=== PATIENT | male | born 1985 | race Caucasian/White ===

== ENCOUNTER 2017-08-30 16:18 | Emergency (ER) | payer MEDICAID, OTHER ==
[2017-08-30] MEDS ORDERED: NS 0.9% 1000 ML* 1,000 ML IV ONE (17:48)
[2017-08-30] MEDS ORDERED: Morphine VIAL* 10 MG/ML 1 ML VIAL IV ONE ×2 (17:48→20:26)
[2017-08-30] MEDS ORDERED: Morphine VIAL* 4 MG/ML VIAL (1 ml vial) IV ONE (18:03)
[2017-08-30 18:09] LABS: ABS Basophils 0.1 10^3/ul (0-0.2); ABS Eosinophils 0.4 10^3/ul (0-0.6); ABS Lymphocytes 2.1 10^3/ul (1.0-4.8); ABS Monocytes 1.2 10^3/ul (0-0.8); ABS Neutrophils 7.6 10^3/ul (1.5-7.7); ABS Nucleated RBC 0 10^3/ul; Eosinophil % 3.8 % (0-6); Hematocrit 42 % (42-52); Hemoglobin 14.2 g/dl (14.0-18.0); Mean Corpuscular HGB Conc 34 g/dl (31-36); Mean Corpuscular Hemoglobin 31 pg (27-31); Mean Corpuscular Volume 93 fL (80-94); Mean Platelet Volume 10.1 um3 (7.4-10.4); Nucleated Red Blood Cells % 0; Platelet Count 173 10^3/ul (150-450); Red Blood Count 4.57 10^6/ul (4.0-5.4); Red Cell Distribution Width 14 % (10.5-15); White Blood Count 11.4 10^3/ul (3.5-10.8)
[2017-08-30 18:25] LABS: EGFR Non-African American 111.1 (>60)
--- NOTE | 2017-08-30 18:46 | RAD ---
Indication: LEFT foot infection/ulcer. Comparison: May 20, 2012 Technique: AP, lateral, and oblique views LEFT foot. Report: Post amputation of the fifth toe at level of the proximal metaphysis of the metatarsal. Internal fixation hardware at the first metatarsal without evidence for component failure or loosening. Chronic appearing fracture at the level of the proximal metaphysis of the fourth metatarsal with nonunion and probable pseudoarthrosis. No acute fracture evident. Soft tissue swelling most prominent over the lateral aspect superficial to the base of the residual fifth metatarsal and extending distally superficial to the chronic fracture of the fourth metatarsal. No subcutaneous emphysema or conspicuous foreign body evident. No periosteal reaction or focal osteolysis evident. Nonspecific osteosclerosis at the residual base of the fifth metatarsal and at the fourth metatarsal flanking the chronic fracture site. IMPRESSION: Extensive lateral soft tissue swelling. Chronic osteomyelitis at the residual base of the fifth metatarsal and fourth metatarsal flanking the chronic nonunion fracture site is not excluded. Correlate with clinical assessment specifically for the site of the ulcer and consider MRI or in setting of contraindication to MRI 3 phase bone scan for further assessment.
[2017-08-30] MEDS ORDERED: Vancomycin(*) 1,000 MG in NS 0.9% 250 ML* 250 ML IVPB ONE (19:24)
--- NOTE | 2017-08-30 20:37 | ED ---
Skin Complaint - HPI Summary HPI Summary: Patient with history of Charcot's foot and fifth digit amputation from left foot complains of redness, purulent drainage, pain from ulcer at lateral left foot along prior surgical incision site starting yesterday. Associated symptoms , subjective fever and chills. Amputation performed in 2015. Denies fever, N/V, loss of sensation or function. - History of Current Complaint Chief Complaint: EDExtremityLower Time Seen by Provider: 08/30/17 17:36 Stated Complaint: LT FOOT INFECTION FROM UC Hx Obtained From: Patient Onset Severity: Mild Current Severity: Moderate Pain Intensity: 0 Pain Scale Used: 0-10 Numeric - Allergy/Home Medications Allergies/Adverse Reactions: Allergies Allergy/AdvReac Type Severity Reaction Status Date / Time divalproex sodium Allergy Vomiting Verified 08/30/17 16:28 [From Depakote] PMH/Surg Hx/FS Hx/Imm Hx Endocrine/Hematology History: Denies: Hx Diabetes, Hx Thyroid Disease Cardiovascular History: Reports: Hx Hypertension - ON CLONIDINE Denies: Hx Pacemaker/ICD, Other Cardiovascular Problems/Disorders Respiratory History: Reports: Hx Asthma - A CHILD Denies: Other Respiratory Problems/Disorders History: Denies: Hx Dialysis, Hx Renal Disease, Other Problems/Disorders Musculoskeletal History: Reports: Other Musculoskeletal History - "Muscular dystrophy" Sensory History: Denies: Hx Contacts or Glasses, Hx Hearing Aid Opthamlomology History: Denies: Hx Contacts or Glasses Neurological History: Denies: Hx Seizures Comment Only: Other Neuro Impairments/Disorders - MUSCULAR DYSTROPHY Psychiatric History: Reports: Hx Depression - A TEEN, Hx Substance Abuse - LONG AGO, USED POT Denies: Hx Panic Disorder - Surgical History Surgery Procedure, Year, and Place: 05/30/12 LT FOOT RESECTION OF FIFTH METATARSAL, [facility]. 2010 LEFT FOOT SURGERY TO REMOVED INFECTION, [facility]. ADENOIDECTOMY, A CHILD Hx Anesthesia Reactions: No Infectious Disease History: No Infectious Disease History: Denies: Traveled Outside the [place] in Last 30 Days - Social History Alcohol Use: Occasionally Substance Use Type: Reports: None Smoking Status (MU): Heavy Every Day Tobacco Smoker Review of Systems Positive: Chills Eyes: Negative ENT: Negative Cardiovascular: Negative Respiratory: Negative Gastrointestinal: Negative Genitourinary: Negative Musculoskeletal: Negative Skin: Other Neurological: Negative Positive: Anxious All Other Systems Reviewed And Are Negative: Yes Physical Exam - Summary Physical Exam Summary: Wound along prior amputation site on the lateral left foot, with erythema and warmth to the dorsal surface of left foot. Wound appears dry, no evidence of purulent discharge. No loss of sensation. PMS intact distally. Left Ankle has no erythema or warmth, full range of motion of flexion and extension without pain. Triage Information Reviewed: Yes Vital Signs On Initial Exam: Initial Vitals Temp Pulse Resp BP Pulse Ox 97.8 F 91 20 142/104 99 08/30/17 16:28 08/30/17 16:28 08/30/17 16:28 08/30/17 16:28 08/30/17 16:28 Vital Signs Reviewed: Yes Appearance: Positive: Well-Appearing Skin: Positive: Warm Head/Face: Positive: Normal Head/Face Inspection Eyes: Positive: Normal Neck: Positive: Supple Respiratory/Lung Sounds: Positive: Clear to Auscultation Cardiovascular: Positive: Normal Abdomen Description: Positive: Nontender Musculoskeletal: Positive: Normal Neurological: Positive: Normal Psychiatric: Positive: Normal AVPU Assessment: Alert - Rios Coma Scale Best Eye Response: 4 - Spontaneous Best Motor Response: 6 - Obeys Commands Best Verbal Response: 5 - Oriented Coma Scale Total: 15 Diagnostics - Vital Signs Vital Signs Temp Pulse Resp BP Pulse Ox 08/30/17 20:00 69 97 08/30/17 19:37 69 100 08/30/17 18:09 16 08/30/17 16:28 97.8 F 91 20 142/104 99 - Laboratory Lab Results: Lab Results 08/30/17 08/30/17 08/30/17 Range/Units 17:56 17:56 17:56 WBC 11.4 H (3.5-10.8) 10^3/ul RBC 4.57 (4.0-5.4) 10^6/ul Hgb 14.2 (14.0-18.0) g/dl Hct 42 (42-52) % MCV 93 (80-94) fL MCH 31 (27-31) pg MCHC 34 (31-36) g/dl RDW 14 (10.5-15) % Plt Count 173 (150-450) 10^3/ul MPV 10.1 (7.4-10.4) um3 Neut % (Auto) 66.8 (38-83) % Lymph % (Auto) 18.0 L (25-47) % Wythe % (Auto) 10.9 H (0-7) % Eos % (Auto) 3.8 (0-6) % Baso % (Auto) 0.5 (0-2) % Absolute Neuts (auto) 7.6 (1.5-7.7) 10^3/ul Absolute Lymphs (auto) 2.1 (1.0-4.8) 10^3/ul Absolute Monos (auto) 1.2 H (0-0.8) 10^3/ul Absolute Eos (auto) 0.4 (0-0.6) 10^3/ul Absolute Basos (auto) 0.1 (0-0.2) 10^3/ul Absolute Nucleated RBC 0 10^3/ul Nucleated RBC % 0 ESR Pending Sodium 140 (139-145) mmol/L Potassium 4.3 (3.5-5.0) mmol/L Chloride 103 (101-111) mmol/L Carbon Dioxide 30 (22-32) mmol/L Anion Gap 7 (2-11) mmol/L BUN 10 (6-24) mg/dL Creatinine 0.81 (0.67-1.17) mg/dL Est GFR ( Amer) 142.9 (>60) Est GFR (Non-Af Amer) 111.1 (>60) BUN/Creatinine Ratio 12.3 (8-20) Glucose 121 H (70-100) mg/dL Lactic Acid 0.7 (0.5-2.0) mmol/L Calcium 8.9 (8.6-10.3) mg/dL Total Bilirubin 0.40 (0.2-1.0) mg/dL AST 20 (13-39) U/L ALT 13 (7-52) U/L Alkaline Phosphatase 65 (34-104) U/L C-Reactive Protein 68.26 H (< 5.00) mg/L Total Protein 7.3 (6.4-8.9) g/dL Albumin 4.1 (3.2-5.2) g/dL Globulin 3.2 (2-4) g/dL Albumin/Globulin Ratio 1.3 (1-3) Result Diagrams: 08/30/17 17:56 08/30/17 17:56 Lab Statement: Any lab studies that have been ordered have been reviewed, and results considered in the medical decision making process. - Radiology left foot Xray Interpretation: Positive (See Comments) - Acute on chronic osteomyelitis Radiology Interpretation Completed By: Radiologist Course/Dx - Course Course Of Treatment: Patient with history of Charcot's foot and fifth digit amputation from left foot complains of redness, purulent drainage, pain from ulcer at lateral left foot along prior surgical incision site starting yesterday. Amputation performed in 2015. Denies fever, N/V, loss of sensation or function. Afebrile, vital signs within normal limits. Mildly elevated white count and CRP. Lactic within normal limits. X-ray positive for either chronic or acute osteomyelitis. Discussed patient with Dr. Fishman who recommended admission for further workup, IV antibiotics and MRI despite pt not being septic. Patient refused admission despite long conversation about possible risks of leaving without a workup and treatment for osteomyelitis. Patient is aware of the risks including sepsis, life-threatening process due to sepsis, loss of left foot. Patient aware that myself and the physician providers recommended admission. Patient continues to refuse admission. Discussed refusal to be admitted with Dr. Fishman, who recommends putting patient on Augmentin by mouth and follow-up in the clinic tomorrow with either her or Dr. Tom. Patient states he understands and agrees with plan, and also will return for any possible concerning symptoms as he recognizes sepsis can be life-threatening. Patient also stated that he "just wants the foot cut off". - Diagnoses Provider Diagnoses: Cellulitis, Osteomyelitis Discharge - Sign-Out/Discharge Documenting (check all that apply): Discharge/Admit/Transfer - Discharge Plan Condition: Stable Disposition: HOME Prescriptions: Amoxicillin/Clavulanate TAB* [Augmentin TAB 875*] 875 mg PO BID #20 tab HYDROcodone/ACETAMIN 5-325 MG* [[place] 5-325 TAB*] 1 tab PO Q6H PRN 2 Days #8 tab MDD 4-6 tabs PRN Reason: Pain Patient Education Materials: Cellulitis (ED) Referrals: Elliot Lorenz MD [Primary Care Provider] - Santi Paul MD [Medical Doctor] - Additional Instructions: Follow-up with orthopedics Dr. Willis tomorrow. They will see you tomorrow in clinic. Return to ED for any worsening symptoms - Billing Disposition and Condition Condition: STABLE Disposition: HOME
[2017-08-30 22:02] VITALS: BP 133/72
== END 2017-08-30 22:00 | disposition home or self-care (01) ==
LOC: ED 16:18
DX: L03.116 Cellulitis of left lower limb (principal); M86.9 Osteomyelitis, unspecified; F17.200 Nicotine dependence, unspecified, uncomplicated; Z88.8 Allergy status to other drugs, medicaments and biological substances; Z89.432 Acquired absence of left foot
CPT/HCPCS: 36415; 80053; 83605; 85025; 85652; 86140; 87040; 96365; 96375; 96376; 99284; J2270; J3370

== ENCOUNTER 2017-09-09 07:30 | Inpatient (IN) | payer MEDICAID ==
[~2017-09-09 07:30] MED LIST: Buffered Lidocaine 0.9% SYRIN* 5 ML/SYR SYRINGE INTRADERM ONE
[2017-09-09] MEDS ORDERED: ceFAZolin 2 GM PREMIX (*) 2 GM/50 ML BAG IVPB ONE (09:42)
[2017-09-09] MEDS ORDERED: Midazolam* 1 MG/ML 5 ML VIAL (5 MG) ONE ×2 (11:02→13:52)
[2017-09-09] MEDS ORDERED: fentaNYL* 50 MCG/ML 2 ML VIAL (100 MCG VIAL) ONE (11:02)
[2017-09-09] MEDS ORDERED: Bupivacaine 0.5% SDV PF* 30ML VIAL ONE ×2 (11:28→11:33)
[2017-09-09] MEDS ORDERED: Famotidine IV* 10 MG/ML 2 ML (20 mg) ONE (12:12)
[2017-09-09] MEDS ORDERED: Propofol* 10 MG/ML 20 ML BTL IV PUSH ONE (12:12)
[2017-09-09] MEDS ORDERED: Dexamethasone IV* 4 MG/ML 1 ML (4 MG) ONE (12:12)
[2017-09-09] MEDS ORDERED: Ketorolac INJ* 30 MG/ML 1 ML VIAL ONE (12:12)
[2017-09-09] MEDS ORDERED: Dexmedetomidine* 200 MCG/2 ML 2 ML VIAL ONE (12:18)
--- NOTE | 2017-09-09 13:26 | CONS ---
DATE OF CONSULTATION: 09/09/2017. REQUESTING PHYSICIAN: Dr. Paul. CONSULTING SERVICE: Infectious Disease. REASON FOR CONSULTATION: Left foot infection. IMPRESSION: 1. Left lateral foot ulceration over bony prominence. MRI, September 01, shows a bone marrow replacement in the fifth metatarsal remnant. Taken together he has chronic osteomyelitis. He has cellulitis as well which is improving while on Augmentin, likely staph or strep, though gram negative and anaerobes are still a consideration. 2. Urtidli-[id number]-[id number]. RECOMMENDATIONS: Continue Augmentin 875 mg by mouth twice daily. Plan on a six week course while we are awaiting the bone and soft tissue specimen and cultures taken together when he is going to have incision and debridement of that area. I discussed with the patient the standard of care would be admission and await cultures and plan on IV antibiotics, which Dr. Paul has attempted to convince him of as well. He understands this, but is unwilling to come into the hospital. He understands this could lead to loss of limb and is unfazed by that. 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 He has had a week or so of left lateral foot ulceration with redness spreading up his foot. He has been on Augmentin for a few days with receding erythema. He has had fevers, chills, and sweats that persist. He did have blood cultures on the there were negative. He is tolerating Augmentin well. He had the MRI with results as above. He is in the preoperative area now awaiting incision and debridement with Dr. Paul. PAST MEDICAL HISTORY: [id number], status post resection of left fifth metatarsal head and first metatarsal fixation. ALLERGIES: DEPAKOTE, TYLENOL, TRAMADOL. FAMILY HISTORY: No recurrent infections. SOCIAL HISTORY: He has been incarcerated. He lives with a girlfriend in [place] now. Past injection drug use. REVIEW OF SYSTEMS: All negative except as noted above to a 14 point review of systems. PHYSICAL EXAM: General: He is awake, not in distress. Vital Signs: Temperature 36, heart rate 85, respiratory rate 16, blood pressure 150/70, oxygen saturation 96 percent on room air. Neurologic: He is oriented times three, follows all commands. HEENT: There is no conjunctival hemorrhage. Oropharynx without lesions. Neck: Supple without mass. Lymph nodes: There are no inguinal, axillary, or epitrochlear lymphadenopathy. Heart: Regular rate and rhythm without murmurs, rubs, or gallops. Lungs: Clear to auscultation bilaterally. Abdomen: Soft, nontender, nondistended, bowel sounds are present. Skin: There is no rash or splinter hemorrhages. Musculoskeletal : Left lateral foot: 2.5 cm ulceration with some slough surrounding erythema over the lateral aspect of the fifth metatarsal. There is no fluctuant or crepitus. LABORATORY DATA: From the , white blood cell count 7, hemoglobin 14, platelets 199, creatinine was 0.7, CRP 8. Please see impressions and recommendations as outlined above which I have discussed with Dr. Paul. Thank you for asking me to see Mr. Hutchinson in consultation. [id number]/CPS #: [id number] MTDD
[2017-09-09] MEDS ORDERED: PROCHLORPERAZINE INJ 5 MG/ML 2 ML VIAL IV PRN (13:29)
[2017-09-09] MEDS ORDERED: Nalbuphine* 20 MG/ML 1 ML VIAL IV PRN (13:29)
[2017-09-09] MEDS ORDERED: Levalbuterol 0.63MG/3ML NEB* UNIT OF USE INH PRN (13:29)
[2017-09-09] MEDS ORDERED: DiMENhydriNATE IV* 50 MG/ML VIAL IV PUSH PRN (13:29)
[2017-09-09] MEDS ORDERED: Ondansetron ODT TAB* 4 MG PO PRN (13:29)
[2017-09-09] MEDS ORDERED: diPHENhydraMINE IV* 50 MG/ML 1 ml VIAL (BENADRYL) IV PRN (13:29)
[2017-09-09] MEDS ORDERED: Naloxone* 0.4 MG/ML 1 ML VIAL IV PRN (13:29)
[2017-09-09] MEDS ORDERED: fentaNYL* 50 MCG/ML 2 ML VIAL (100 MCG VIAL) IV PRN (13:29)
[2017-09-09] MEDS ORDERED: HYDROmorphone INJ* 1 MG/ML CARPUJECT SYRINGE IV PRN (13:29)
--- NOTE | 2017-09-09 14:23 | OP ---
Operative Report - Blank - Operative Report Date of Operation: 09/09/17 Note: PATIENT: Kendrick Hutchinson III DATE OF : 1985 DATE OF SURGERY: 09/09/2017 SURGEON: Santi Paul MD MANAGER IT SECURITY: DAMIÁN Roman, whos assistance was necessary for positioning, retraction, help with instrumentation, and closure. ANESTHESIOLOGIST: Dr. Skinner PREOPERATIVE DIAGNOSIS: 1. 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 Left Achilles contracture POSTOPERATIVE DIAGNOSIS: 1. Left foot infection with osteomyelitis 2. Cavovarus foot deformity from Rovnxzg-Qbvza-Vfsoh 3. Left Achilles contracture OPERATION: 1. Left foot transtarsal (Chopart) amputation 2. Left tibialis anterior tendon transfer 3. Left lateralizing calcaneal osteotomy 4. Left percutaneous Achilles tenotomy ANESTHESIA: GETA IMPLANTS: Two 6.5mm Synthes cannulated screws TOURNIQUET TIME: Less than 2 hours with a well-padded thigh tourniquet at 250mmHg. SPECIMENS: Foot sent to pathology. Micro x2 ESTIMATED BLOOD LOSS: minimal COMPLICATIONS: none STATUS: Stable from the operating room to the recovery room and then home INDICATIONS FOR PROCEDURE: Kendrick has had a complicated history with his left foot. This has resulted in multiple ulcers and infections, and currently osteomyelitis. Both operative and non operative treatment alternatives were reviewed. Further, the nature and risks of surgery were reviewed in careful detail. Our discussions regarding the risks of surgery included, but were not limited to, infection, wound problems, nerve injury, neuroma, RSD, persistent symptoms, blood clot, persistent or worsening infection, phantom limb pain, failure of the surgery, nonunion, malunion, need for further amputation, need for further surgery, and even the remote chance of catastrophic complication, including loss of limb. DESCRIPTION OF PROCEDURE: The patient was seen in the preoperative holding unit and informed written consent was obtained. The appropriate extremity was marked. The patient was then brought to the operating room and carefully positioned on the operating room table. Anesthesia was induced. All bony prominences were padded with great care. A well-padded thigh tourniquet was placed. A chlorhexidine based pre- scrub was performed followed by a chloraprep prep and drape in standard sterile fashion. A surgical safety pause was then conducted in which we confirmed the appropriate patient, extremity, planned procedure, availability of equipment, indication and administration of prophylactic antibiotics, and DVT prophylaxis in the form of a compression boot on the non-surgical extremity. We began with Esmarch exsanguination of the limb, avoiding the involved foot, and inflated the tourniquet. We utilized a fish-mouth incision at the midfoot. I dissected down through the dorsal and lateral foot to define the tibialis anterior tendon. These were dissected out, incised at their distal insertion, and tagged for later transfer. I then identified the neurovascular bundles. The vessels were carefully tied off and the nerves were transected proximally in the soft tissue. Tendons (except the tibialis anterior) were transected. I then sharply dissected down to the transtarsal joints. The mid and forefoot were then amputated at the level of the transtarsal (Chopart) joints. Deep cultures were sent to microbiology. The foot was sent to pathology. The tibialis anterior tendon was then transferred to the neck of the talus. The tendon was sized and an appropriately sized diameter drill hole was made into the neck of the talus. The ankle was held in a neutral position and the tendon was passed transosseously through the drill hole and secured with #1 vicryl sutures. I then made an approximately 5 cm longitudinal incision at the lateral hindfoot. I used a previous incision from a prior surgery. I bluntly dissected down to the lateral calcaneus. A small oscillating saw was used to plan out the osteotomy. Fluoroscopy was used to confirm the location of the osteotomy. The osteotomy was made of the calcaneus. I used a Truong to release the medial soft tissues. I then translated the posterior aspect of the calcaneus approximately 1 cm lateral. Two guidewires were placed for 6.5 mm cannulated screws. Their position was confirmed on fluoroscopy. The guidewires were overdrilled and two partially-threaded 6.5 mm cannulated screws were placed. Final fluoroscopic images were obtained. I then turned my attention to the Achilles tendon to prevent a progressive equinus contracture. I performed a percutaneous tenotomy of the midsubstance of the Achilles tendon utilizing a 15-blade scalpel. The ankle was then dorsiflexed confirming that the Achilles had been fully transected. At this point, the tourniquet was deflated. Hemostasis was obtained. We irrigated copiously. All remain tissue appeared healthy and viable. We closed meticulously in layers utilizing #1 Vicryl for the deep layer, 3-0 Monocryl for the subdermal layer, and 3-0 nylon and jada for the skin. A sterile dressing was then applied followed by a splint with the ankle in neutral alignment. The patient was then awakened from anesthesia and transferred to the recovery room in stable condition. There were no complications. All needle and sponge counts were correct at the end of the case. ATTESTATION: I attest I was present and scrubbed and performed the critical portions of the procedure myself. POSTOPERATIVE PLAN: The patient will remain [id number] in the splint and will follow up will be in two weeks for a wound check. Antibiotic treatment will be guided by the infectious disease service.
[2017-09-09] MEDS ORDERED: oxyCODONE/Acetamin 5/325 MG* TAB ONE (15:35)
[2017-09-09] MEDS ORDERED: oxyCODONE TAB* 5 MG TAB ONE (15:36)
[2017-09-09 15:54] VITALS: BP 122/60
--- NOTE | 2017-09-13 10:03 | RAD ---
CPT II Codes: G9500 INDICATION: Calcaneal slide osteotomy TECHNIQUE: Intraoperative fluoroscopy was provided during left heel surgery. FINDINGS: 2 spot films depict intramedullary screw fixation of the calcaneal tubercle after apparent surgical osteotomy. Fluoroscopy time: 22.3 seconds IMPRESSION: As above.
== END 2017-09-09 15:57 | disposition home or self-care (01) | DRG 305 ==
LOC: AA 08:35
PROVIDERS: ADMIT Orthopaedic Surgery; ATTEND Orthopaedic Surgery
PROC: 0LXT0ZZ Transfer Left Ankle Tendon, Open Approach (ICD-10-PCS; 2017-09-09)
PROC: 0Y6N0Z0 Detachment at Left Foot, Complete, Open Approach (ICD-10-PCS; principal; 2017-09-09 10:15)
PROC: 0LN Tendons, Release (ICD-10-PCS; 2017-09-09 10:15)
DX: M86.172 Other acute osteomyelitis, left ankle and foot (principal); L97.426 Non-pressure chronic ulcer of left heel and midfoot with bone involvement without evidence of necrosis; L03.116 Cellulitis of left lower limb; F17.210 Nicotine dependence, cigarettes, uncomplicated; J45.909 Unspecified asthma, uncomplicated; M86.672 Other chronic osteomyelitis, left ankle and foot; F31.9 Bipolar disorder, unspecified; G60.0 Hereditary motor and sensory neuropathy; M67.02 Short Achilles tendon (acquired), left ankle; F60.2 Antisocial personality disorder; Z86.19 Personal history of other infectious and parasitic diseases; Z88.8 Allergy status to other drugs, medicaments and biological substances; Z80.1 Family history of malignant neoplasm of trachea, bronchus and lung; Q66.1 Congenital talipes calcaneovarus; Q66.7 Congenital pes cavus
CPT/HCPCS: 76001; 87070; 87073; 87205; 88307; 88311; A9270-GY; C1713; J0690; J1100; J1885; J2250; J2704; J3010

== ENCOUNTER 2018-01-01 04:56 | Emergency (ER) | payer SELFPAY ==
[2018-01-01] MEDS ORDERED: LORazepam TAB(*) 1 MG ONE (05:01)
[2018-01-01] MEDS: LORazepam TAB(*) 1 MG PO ONE ×2 (05:04→05:07)
[2018-01-01] MEDS ORDERED: LORazepam INJ* 2 MG/ML 1 ML VIAL IM ONE (05:05)
--- OUTSIDE RECORDS SUMMARY | 2018-01-01 05:17 | XMS REPORT ---
:1985 External Reference #:[id number] Author Organization [employer] Address [address] [place] [address] [place] [address] Phone [phone] Care Team Providers Name Role Phone Elliot Lorenz MD Primary Care Physician Unavailable Payers Type Date Identification Numbers Payment Provider Subscriber Medicaid Expires: Policy Number: [id number] Medicaid Kendrick Hutchinson III 2017 Group Name: 1 1 [address] PayID: [id number] [place] [address] Commercial Policy Number: [id number] Wilton Barajas Hutchinson III Group Number: [id number] [address] PayID: [id number] [place] [address] Commercial Expires: 2017 Policy Number: [id number] Wilton Barajas Hutchinson III PayID: [id number] [address] [place] [address] Workers Compensation Onset: 2008 Policy Number: [place] Kendrick Barajas [place] [id number] [facility] Group Number: [id number] PayID: [id number] [place] [address] Problems Date Description Provider Status Onset: 10/17/2007 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,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 Bipolar disorder Christopher Olguin M.D.,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 Antisocial personality disorder Christopher Olguin M.D.,FACP Onset: 08/14/2008 Ulcer of foot Christopher Olguin M.D.,FACP Onset: 08/31/2017 Acute osteomyelitis of ankle Santi Paul MD Active and/or foot Onset: 08/31/2017 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 Onset: 08/31/2017 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 Onset: 08/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 Cellulitis of left lower limb Santi Paul MD Active Family History Date Family Member(s) Problem(s) Comments Mother Cancer, Lung Mother due to Lung Cancer () Social History Type Date Description Comments Marital Status Single Lives With Alone Occupation Disabled Hand Dominance Right-handed Cigarette Use current cigarette smoker Cigarette Use Current Cigarette Smoker 1 Pack Daily ETOH Use Drinks Alcoholic Beverages Occasionally Recreational Drug Use Formerly used Marijuana regularly last 6 month ago Smoking Patient is a former smoker Allergies, Adverse Reactions, Alerts Date Description Reaction Status Severity Comments 05/02/2007 Depakote active bowel issues 05/02/2007 Ultracet active GI discomfort Medications Medication Date Status Form Strength Qnty SIG Indications Ordering Provider Gabapentin 12/27 Active Capsules 300mg 90cap 1 by G60.0 [place] braulio Cole M.D. three times a day Cane 11/05 Active Misc 1unit standard [facility] s adjustabl MD Beverly e height cane. No Active 12/27 Hx Unknown Medications /2017 - 12/27 Oxycodone HCL 11/22 Hx Tablets 5mg 10tab take 1 by [facility] braulio Paul MD - twice 12/26 daily needed for pain Doxycycline 09/17 Hx Capsules 100mg 28cap 1 cap by [id number] [facility] bra[facility]io Paul MD twice a day with food Gabapentin 09/10 Hx Capsules 300mg 60cap 1 tab by [facility] braulio Paul MD daily Oxycodone HCL 09/03 Hx Capsules 5mg 5caps take 1 at Josef night for Jose F Choi - pain. 09/03 Oxycodone HCL 25 Hx Tablets 5mg 35tab take 1 by [facility] braulio Choi M.D. every 4-6 hours as needed pain. Methadone HCL 12/07 Hx Tablets 10mg 56tab 1 tab po 359.1 Moose Lemus /2008 s tid for 1 Sunny Garcia M.D.,[facility] 09/06 then bid Symbyax 12/07 Hx Capsules 6-25mg 30cap 1 po qhs 296.89 Moose Lemus /2008 s Sunny Garcia M.D.,[facility] 09/06 Dicloxacillin 11/27 Hx Capsules 500mg 40cap 1 qid po 682.3 Moose Lemus Sodium /2008 s for 10 Sunny Garcia M.D.,[facility] 12/07 Amitriptyline 11/27 Hx Tablets 10mg 90tab 1 qam, 2 359.1 Moose Lemus HCL /2008 s po qhs Sunny Garcia M.D.,[facility] 09/06 Opana 11/27 Hx Tablets 10mg 90tab 1-2 q4 707.15 Moose Lemus /2008 s prn Sunny Garcia M.D.,[facility] 09/06 (short acting) Opana ER 11/15 Hx Tablets ER 40mg 90tab 1 tab po 359.1 Moose Lemus /2008 12HR s q8h Sunny Garcia M.D.,[facility] 12/07 Opana 11/15 Hx Tablets 5mg 90tab 1-2 po 707.15 Moose Lemus /2008 s q4h prSunny Becker M.D.,[facility] 11/27 Flexeril 10/31 Hx Tablets 10mg 60tab 1 po tid Moose Lemus /2008 s prn Sunny Garcia M.D.,[facility] 09/06 Opana ER 10/31 Hx Tablets ER 30mg 180ta 2 po q8h 707.15 Moose Lemus /2008 12HR bs Sunny Garcia M.D.,[facility] 11/15 Keflex 08/23 Hx Capsules 500mg 30cap tid for Moose Lemus /2008 s 10 days Sunny Garcia M.D.,[facility] 10/02 Actiq 08/23 Hx Lollipop 400mcg 60uni 1 q3h prn 707.15 Moose Lemus /2008 ts Sunny Garcia M.D.,[facility] 10/02 Actiq 08/14 Hx Lollipop 200mcg 30uni tid 707.15 Moose Lemus /2008 ts buccal Sunny Garcia M.D.,FACP 08/23 Cipro HC Otic 08/14 Hx Suspension 10ml 3 ggt 380.22 Moose Lemus /2008 affected Radha - ear qd Bernadette.Allan,FACP 11/27 for week Levitra 07/13 Hx Tablets 10mg 12tab qd prn 607.84 Moose Lemus /2008 s Sunny Garcia M.D.,FACP 09/06 Morphine 07/13 Hx Solution 20mg/ml 120ml 1 ml po 707.15 Moose Lemus Sulfate q4h prn Sunny [facility]ma Kohler[facility] 08/14 ugh pain Opana ER 07/13 Hx Tablets ER 40mg 90tab 1 tab po 707.15 Moose Lemus /2008 12HR s q8h Sunny Garcia M.D.,FACP 10/31 Avelox 06/05 Hx Tablets 400mg 10tab 1 qd x 10 707.15 Moose Lemus /2008 s days Sunny Garcia M.D.,FACP 07/13 Magnesium 06/05 Hx Solution 1.745GM/30 3unit 1 bottle 564.00 Moose Lemus Citrate ML s prn Sunny Garcia M.D.,FACP 11/27 ion Oxyfast 05/22 Hx Concentrate 20mg/ml 30ml 0.5-1 ml 707.15 Thananart, po q2h Jose F Sy - prn 07/13 severe pain Augmentin 05/22 Hx Suspension 250/5ML 200ml 10 ml gt 707.15 Moose Lemus /2008 Rec bid for Radha, - 10 days Jose F,FACP 07/13 Opana 03/26 Hx Tablets 10mg 100ta 1-2 q4 707.15 Moose Lemus /2007 bs prSunny Becker M.D.,FACP 11/15 (short acting) Opana ER 01/15 Hx Tablets ER 30mg 90tab po q8h 707.15 Moose Lemus /2007 12HR s Sunny Garcia M.D.,FACP 07/13 Miralax 01/01 Hx Packet 3350NF 30uni 17 gm qd 564.00 Moose Lemus /2007 ts [facility]ullough [facility] 01/01 Colace 01/01 Hx Capsules 100mg 60cap 1 po bid 564.00 Moose Lemus /2007 Sunny Liang M.D.,[facility] 09/06 Miralax 01/01 Hx Powder Per Bottle 527un per Moose Lemus Direction its instructSunny Borrego M.D.,[facility] 09/06 Opana ER 12/21 Hx Tablets ER 10mg 90tab 2 tabs po 707.15 Moose Lemus /2007 12HR s q8h [facility] 01/15 Augmentin 12/21 Hx Tablets 875mg 28tab 1 tab po 682.6 Thananart, /2007 s bid x 14 Jose F Sy - days 01/01 Opana ER 12/13 Hx Tablets ER 15mg 90tab q8h po 707.15 Moose Lemus /2007 12HR [facility] 12/21 Percocet 12/13 Hx Tablets 10-325mg 210ta 1-2 tab 707.15 Moose Lemus bs po qid Sunny Garcia [facility] 03/26 Opana ER 11/17 Hx Tablets ER 15mg 60tab q12h po 707.15 Moose Lemus 12HR s Sunny Garcia M.D.,FACP 12/13 Duragesic 10/27 Hx Patches 50mcg/HR 15uni 1 patch 707.15 Moose Lemus 72HR ts q48h Sunny Garcia M.D.,FACP 11/17 Percocet 10/16 Hx Tablets 5-325mg 240ta 1-2 po 707.15 Moose Lemus bs qid Sunny Mccullough M.D.,[facility] 12/13 Duragesic 10/16 Hx Patches 25mcg/HR 30uni 1-2 Moose Lemus /2007 72HR ts patches Radha - topical Jose F,[facility] 10/27 q2days Duragesic 10/03 Hx Patches 50mcg/HR 10uni 1 patch Moose Lemus /2007 72HR ts q72h Radha - MJennifer,[facility] 10/16 Duragesic 08/23 Hx Patches 25mcg/HR 10uni apply on Moose Lemus /2007 72HR ts every 72 Radha, - hours M.Allan,[facility] 10/03 Augmentin 08/10 Hx Tablets 875mg 28tab si 707.15 Moose Lemus /2007 s bid x 14 Radha, - days M.DDalton,[facility] 10/16 Vicodin 08/10 Hx Tablets 5-500mg 90tab 1 q 4-6 707.15 Moose Lemus /2007 s hours prSunny Becker M.D.,[facility] 10/16 Vicodin 07/12 Hx Tablets 5-500mg 40tab 1 q 4-6 707.15 Moose Lemus /2007 s hours prSunny Becker M.D.,[facility] 08/10 Cephalexin 07/12 Hx Capsules 500mg 40cap 1 quid 707.15 Moose Lemus /2007 s Sunny Garcia M.D.,[facility] 08/10 Vicodin 05/02 Hx Tablets 5-500mg 45tab 1 q 6 359.1 Moose Lemus /2007 s hours prn Radha - pain Bernadette.Allan,[facility] 08/10 Doxycycline 05/02 Hx Capsules 100mg 20cap si 359.1 Moose Lemus Monohydrate /2007 s bid x 10 Radha, - days M.DDalton,[facility] 08/10 Trazodone HCL Hx Tablets 50mg 30tab One tid Moose Lemus /0000 s Sunny Garcia M.D.,[facility] 08/10 Atarax 00 Hx Moose Lemus /0000 Sunny Gacria M.D.,FACP 08/10 Haldol Hx Solution 5mg/ml 1 PO qd Moose Lemus /0000 [facility] 08/10 Augmentin Hx Tablets 500-125mg 1 by Unknown /0000 mouth - twice a Amoxicillin/Cl Hx Tablets 875-125mg 20tab 1 by Santi avulanate /0000 s mouth MD Beverly Potassium twice a day Ibuprofen Hx Tablets 800mg by mouth Unknown /0000 three - times a needed Vital Signs Date Vital Result Comment 12/27/2017 Height 72 inches 6'0" Weight 220.00 lb Heart Rate 80 /min BP Systolic 130 mmHg BP Diastolic 74 mmHg Respiratory Rate 20 /min BMI (Body Mass Index) 29.8 kg/m2 12/20/2017 Height 72 inches 6'0" Weight 215.00 lb Heart Rate 92 /min Respiratory Rate 16 /min Body Temperature 97.9 F Pain Level 2 BMI (Body Mass Index) 29.2 kg/m2 11/22/2017 Height 72 inches 6'0" Weight 215.00 lb Heart Rate 80 /min BP Systolic 128 mmHg BP Diastolic 76 mmHg Respiratory Rate 14 /min Pain Level 10 BMI (Body Mass Index) 29.2 kg/m2 11/10/2017 Heart Rate 72 /min Respiratory Rate 18 /min Body Temperature 97.0 F 10/12/2017 Height 72 inches 6'0" Weight 215.00 lb Heart Rate 72 /min BP Systolic 130 mmHg BP Diastolic 72 mmHg Respiratory Rate 16 /min Body Temperature 97.3 F BMI (Body Mass Index) 29.2 kg/m2 09/24/2017 Height 72 inches 6'0" Weight 215.00 lb Heart Rate 78 /min Respiratory Rate 12 /min Body Temperature 97.4 F Pain Level 0 BMI (Body Mass Index) 29.2 kg/m2 09/21/2017 Height 72 inches 6'0" Weight 215.00 lb Heart Rate 76 /min BP Systolic 142 mmHg BP Diastolic 80 mmHg Respiratory Rate 16 /min Body Temperature 97.5 F Pain Level 0 BMI (Body Mass Index) 29.2 kg/m2 09/17/2017 Height 72 inches 6'0" Weight 215.00 lb Heart Rate 87 /min Respiratory Rate 18 /min Body Temperature 97.6 F Pain Level 4 BMI (Body Mass Index) 29.2 kg/m2 09/07/2017 Height 72 inches 6'0" Weight 215.00 lb Heart Rate 77 /min Respiratory Rate 18 /min Pain Level 7 BMI (Body Mass Index) 29.2 kg/m2 09/03/2017 Height 72 inches 6'0" Weight 215.00 lb BP Systolic 132 mmHg BP Diastolic 76 mmHg Respiratory Rate 18 /min Pain Level 10 BMI (Body Mass Index) 29.2 kg/m2 08/31/2017 Height 72 inches 6'0" Heart Rate 78 /min BP Systolic 170 mmHg BP Diastolic 80 mmHg Respiratory Rate 14 /min Body Temperature 98.4 F Pain Level 10 12/07/2008 Height 72 inches 6'0" Weight 211.00 lb Heart Rate 84 /min BP Systolic Sitting 130 mmHg BP Diastolic Sitting 80 mmHg BMI (Body Mass Index) 28.6 kg/m2 11/27/2008 Height 72 inches 6'0" Weight 205.00 lb Heart Rate 70 /min BP Systolic Sitting 110 mmHg BP Diastolic Sitting 60 mmHg BMI (Body Mass Index) 27.8 kg/m2 10/02/2008 Height 72 inches 6'0" Weight 200.00 lb Heart Rate 80 /min BP Systolic Sitting 140 mmHg BP Diastolic Sitting 90 mmHg BMI (Body Mass Index) 27.1 kg/m2 08/14/2008 Height 72 inches 6'0" Weight 200.00 lb Heart Rate 88 /min BP Systolic Sitting 110 mmHg BP Diastolic Sitting 60 mmHg BMI (Body Mass Index) 27.1 kg/m2 07/13/2008 Weight 196.00 lb Heart Rate 80 /min BP Systolic Sitting 112 mmHg BP Diastolic Sitting 64 mmHg 06/05/2008 Height 72 inches 6'0" Weight 193.00 lb Heart Rate 72 /min BP Systolic Sitting 120 mmHg BP Diastolic Sitting 60 mmHg BMI (Body Mass Index) 26.2 kg/m2 06/05/2008 Height 72 inches 6'0" 05/22/2008 Height 72 inches 6'0" Weight 193.00 lb Heart Rate 76 /min BP Systolic Sitting 146 mmHg BP Diastolic Sitting 80 mmHg Body Temperature 97.8 F BMI (Body Mass Index) 26.2 kg/m2 03/26/2008 Height 72 inches 6'0" Weight 201.00 lb Heart Rate 74 /min BP Systolic Sitting 148 mmHg BP Diastolic Sitting 62 mmHg BMI (Body Mass Index) 27.3 kg/m2 02/16/2008 Height 72 inches 6'0" Weight 201.00 lb Heart Rate 64 /min BP Systolic Sitting 114 mmHg BP Diastolic Sitting 60 mmHg BMI (Body Mass Index) 27.3 kg/m2 01/16/2008 Height 72 inches 6'0" Weight 198.00 lb Heart Rate 68 /min BP Systolic Sitting 162 mmHg BP Diastolic Sitting 70 mmHg BMI (Body Mass Index) 26.9 kg/m2 01/02/2008 Height 72 inches 6'0" Weight 198.00 lb Heart Rate 72 /min BP Systolic Sitting 130 mmHg BP Diastolic Sitting 82 mmHg BMI (Body Mass Index) 26.9 kg/m2 12/22/2007 Height 72 inches 6'0" Weight 220.00 lb Heart Rate 72 /min BP Systolic Sitting 130 mmHg BP Diastolic Sitting 82 mmHg Body Temperature 98.3 F BMI (Body Mass Index) 29.8 kg/m2 12/22/2007 Height 72 inches 6'0" Weight 212.00 lb BMI (Body Mass Index) 28.7 kg/m2 12/22/2007 Height 72 inches 6'0" 12/14/2007 Height 72 inches 6'0" Weight 201.00 lb Heart Rate 78 /min BP Systolic Sitting 138 mmHg BP Diastolic Sitting 80 mmHg BMI (Body Mass Index) 27.3 kg/m2 11/18/2007 Height 72 inches 6'0" Weight 204.00 lb Heart Rate 72 /min BP Systolic Sitting 130 mmHg BP Diastolic Sitting 72 mmHg BMI (Body Mass Index) 27.7 kg/m2 10/28/2007 Height 72 inches 6'0" Weight 199.00 lb Heart Rate 82 /min BP Systolic Sitting 158 mmHg BP Diastolic Sitting 70 mmHg Body Temperature 98.7 F BMI (Body Mass Index) 27.0 kg/m2 10/17/2007 Height 72 inches 6'0" Weight 201.00 lb Heart Rate 80 /min BP Systolic Sitting 140 mmHg BP Diastolic Sitting 80 mmHg Respiratory Rate 16 /min Body Temperature 98.1 F BMI (Body Mass Index) 27.3 kg/m2 10/17/2007 Height 72 inches 6'0" 08/11/2007 Height 72 inches 6'0" Weight 210.00 lb Heart Rate 80 /min BP Systolic Sitting 134 mmHg BP Diastolic Sitting 70 mmHg BMI (Body Mass Index) 28.5 kg/m2 07/13/2007 Height 72 inches 6'0" Weight 225.00 lb Heart Rate 72 /min BP Systolic Sitting 120 mmHg BP Diastolic Sitting 70 mmHg BMI (Body Mass Index) 30.5 kg/m2 05/02/2007 Height 72 inches 6'0" Weight 225.00 lb Heart Rate 78 /min BP Systolic Sitting 142 mmHg BP Diastolic Sitting 78 mmHg BMI (Body Mass Index) 30.5 kg/m2 Results Test Date Test Result H/L Range Note Laboratory test 11/16/2017 Cytology Non-Engineer Specialist SEE RESULT BELOW 1 finding Leukemia/Lymphoma 11/16/2017 Path Interpret 9-15 (SEE NOTE) 2 Flow Marker Comp Metabolic Panel 09/07/2017 Sodium 137 mmol/L Low 139-145 Potassium 4.4 mmol/L 3.5-5.0 Chloride 103 mmol/L 101-111 Co2 Carbon Dioxide 28 mmol/L 22-32 Anion Gap 6 mmol/L 2-11 Glucose 99 mg/dL 70-100 Blood Urea Nitrogen 10 mg/dL 6-24 Creatinine 0.69 mg/dL 0.67-1.17 BUN/Creatinine Ratio 14.5 8-20 Calcium 8.9 mg/dL 8.6-10.3 Total Protein 7.3 g/dL 6.4-8.9 Albumin 4.1 g/dL 3.2-5.2 Globulin 3.2 g/dL 2-4 Albumin/Globulin Ratio 1.3 1-3 Total Bilirubin 0.70 mg/dL 0.2-1.0 Alkaline Phosphatase 68 U/L 34-104 Alt 14 U/L 7-52 Ast 22 U/L 13-39 Egfr Non- 133.7 >60 Egfr 172.0 >60 3 Laboratory test finding 09/07/2017 C Reactive Protein 7.92 mg/L High < 5.00 4 Inr/Protime 09/07/2017 Inr 0.99 0.77-1.02 Laboratory test finding 09/07/2017 Partial Thrombo Time 31.8 seconds 26.0 -36.3 PTT CBC Auto Diff 09/07/2017 White Blood Count 7.6 10^3/uL 3.5-10.8 Red Blood Count 4.70 10^6/uL 4.0-5.4 Hemoglobin 14.3 g/dL 14.0-18.0 Hematocrit 43 % 42-52 Mean Corpuscular Volume 91 fL 80-94 Mean Corpuscular Hemoglobin 31 pg 27-31 Mean Corpuscular HGB Conc 34 g/dL 31-36 Red Cell Distribution Width 14 % 10.5-15 Platelet Count 199 10^3/uL 150-450 Mean Platelet Volume 9.5 um3 7.4-10.4 Abs Neutrophils 4.2 10^3/uL 1.5-7.7 Abs Lymphocytes 2.3 10^3/uL 1.0-4.8 Abs Monocytes 0.7 10^3/uL 0-0.8 Abs Eosinophils 0.2 10^3/uL 0-0.6 Abs Basophils 0.1 10^3/uL 0-0.2 Abs Nucleated RBC 0 10^3/uL Granulocyte % 56.0 % 38-83 Lymphocyte % 30.3 % 25-47 Monocyte % 9.6 % High 0-7 Eosinophil % 3.3 % 0-6 Basophil % 0.8 % 0-2 Nucleated Red Blood Cells % 0 Laboratory test finding 09/07/2017 Erythrocyte Sed Rate 25 mm/Hr High 0- 14 Aerobic Culture Bottle 12/20/2008 Aerobic Culture Bottle NG5 5 Anaerobic Culture Bottle 12/20/2008 Anaerobic Culture Bottle NG5 6 Basic Metabolic Panel 12/20/2008 Sodium 136 mmol/L 135-145 Stat Potassium 4.4 mmol/L 3.5-5.0 Chloride 101 mmol/L 101-111 Co2 (Carbon Dioxide) 22.0 mmol/L 22-32 Anion Gap 13.0 mmol/L High 2-11 7 Glucose 114 mg/dL High 70-100 8 BUN 9 mg/dL 6-24 Creatinine 0.90 mg/dL 0.50-1.40 One Over Creatinine 1.10 BUN/Creatinine Ratio 10.0 8-20 Calcium 9.2 mg/dL 8.1-9.9 9 eGFR Non- 112.2 > 60 eGFR 135.7 > 60 10 Laboratory test finding 12/20/2008 Amylase Stat 40 U/L 30-125 Lipase 11 U/L Low 22-51 Acetaminophen Stat 140 g/mL High 10-30 11 Alcohol Stat < 10.0 mg/dL None Detected 12 Salicylate Stat < 4.0 mg/dL Less Than 30 13 TSH 1.39 MIU/ML 0.34-5.60 CBC With Manual Diff Stat 12/20/2008 White Blood Count 13.4 CUMM High 4.8- 10.8 Red Cell Count 4.61 CUMM 4.6-6.2 Hemoglobin 14.1 g/dL 14.0-18.0 Hematocrit 41 % Low 42-52 Mean Corpuscular Volume 88 um3 80-94 Mean Corpuscular Hemoglob 31 pg 27-31 Mean Corpuscular HGB Cone 35 g/dL 32-36 Redcell Distribution WDTH 13 % 10.5-15 Platelet Count 245 CUMM 150-450 Mean Platelet Volume 8.7 um3 7.4-10.4 Polysegmented Neutrophil 82 % 38-83 Lymphocyte 9 % Low 25-47 Monocyte 9 % 0-13 Absolute Neutrophil Count 10.9 RBC Morphology NORMAL Ua Stat 12/20/2008 Ua Color YELLOW Appearance-Urine CLEAR Specific [place]-Ur 1.014 1.010-1.030 Esterase-Urine NEGATIVE Negative Nitrite NEGATIVE Negative Fdatejzyfgco-Gb-EXP NEGATIVE Negative Protein-Urine NEGATIVE Negative PH-Urine 5.5 5-9 Blood-Urine NEGATIVE Negative Ketones-Urine NEGATIVE Negative Bilirubin-Ur NEGATIVE Negative Glucose-Urine NEGATIVE Negative DS3 12/20/2008 Amphetamines Urine Screen NONE DETECTED None Detect Barbituates Urine Screen NONE DETECTED None Detect Benzodiazepine Ur Screen NONE DETECTED None Detect Cannabinoid Urine Screen NONE DETECTED None Detect Cocaine Metabolites Urine NONE DETECTED None Detect Opiates Urine Screen POSITIVE None Detect PCP Urine Screen NONE DETECTED None Detect 14 CMP Panel Stat 11/22/2008 Sodium 134 mmol/L Low 135-145 Potassium 3.5 mmol/L 3.5-5.0 Chloride 101 mmol/L 101-111 Co2 (Carbon Dioxide) 24.0 mmol/L 22-32 Anion Gap 9.0 mmol/L 2-11 15 Glucose 118 mg/dL High 70-100 16 BUN 7 mg/dL 6-24 Creatinine 0.70 mg/dL 0.50-1.40 One Over Creatinine 1.40 BUN/Creatinine Ratio 10.0 8-20 Calcium 8.7 mg/dL 8.1-9.9 17 Total Protein 6.9 GM/DL 6.2-8.1 Albumin 3.3 GM/DL Low 3.6-5.4 Globulin 3.6 GM/DL 2-4 Albumin/Globulin Ratio 0.9 Low 1-3 Bilirubin Total 0.7 mg/dL 0.4-1.5 18 Alkaline Phosphatase 78 U/L 39-117 Alt (SGPT) 18 U/L 17-63 Ast (Sgot) 20 U/L 12-42 eGFR Non- 149.9 > 60 eGFR 181.4 > 60 19 CBC With Manual Diff Stat 11/22/2008 White Blood Count 14.7 CUMM High 4.8- 10.8 Red Cell Count 4.18 CUMM Low 4.6-6.2 Hemoglobin 12.8 g/dL Low 14.0-18.0 Hematocrit 37 % Low 42-52 Mean Corpuscular Volume 89 um3 80-94 Mean Corpuscular Hemoglob 31 pg 27-31 Mean Corpuscular HGB Cone 34 g/dL 32-36 Redcell Distribution WDTH 13 % 10.5-15 Platelet Count 223 CUMM 150-450 Mean Platelet Volume 8.8 um3 7.4-10.4 Polysegmented Neutrophil 74 % 38-83 Lymphocyte 21 % Low 25-47 Monocyte 3 % 0-13 Eosenophil 1 % 0-6 Basophil 1 % 0-2 Absolute Neutrophil Count 10.8 Anisocytosis SLIGHT Polychromasia SLIGHT CS-1 11/22/2008 Clindamycin <=0.25 20 Ciprofloxacin <=0.5 20 Erythromycin <=0.25 20 Gentamicin <=0.5 20 Levofloxacin 0.25 20 Linezolid 2 20 Oxacillin 0.5 20 Rifampin <=0.5 20 Trimeth-Sulfa <=10 20 Tetracycline <=1 20 Tigecycline <=0.12 20 Vancomycin 1 20 Laboratory test 11/22/2008 Culture STAPHYLOCOCCUS A <SEE 20, 21 finding Sensitivity NOTE> Anaerobic Culture 11/22/2008 Anaerobic Culture NG5 22 Bottle Bottle Aerobic Culture 11/22/2008 Aerobic Culture NG5 23 Bottle Bottle Laboratory test 09/28/2008 TSH 1.08 MIU/ML 0.34-5. finding 60 Hemoglobin A1c 5.6 % <6.0 24 Alcohol Stat 09/28/2008 Alcohol < 10.0 mg/dL None Detected 25 Basic Metabolic Panel Stat 09/28/2008 Sodium 138 mmol/L 135-145 Potassium 3.9 mmol/L 3.5-5.0 Chloride 105 mmol/L 101-111 Co2 (Carbon Dioxide) 26.0 mmol/L 22-32 Anion Gap 7.0 mmol/L 2-11 26 Glucose 145 mg/dL High 70-100 27 BUN 8 mg/dL 6-24 Creatinine 0.80 mg/dL 0.50-1.40 One Over Creatinine 1.20 BUN/Creatinine Ratio 10.0 8-20 Calcium 8.9 mg/dL 8.1-9.9 28 CBC With Manual Diff 09/28/2008 White Blood Count 12.4 CUMM High 4.8-10.8 Red Cell Count 4.69 CUMM 4.6-6.2 Hemoglobin 14.4 g/dL 14.0-18.0 Hematocrit 42 % 42-52 Mean Corpuscular Volume 89 um3 80-94 Mean Corpuscular Hemoglob 31 pg 27-31 Mean Corpuscular HGB Cone 34 g/dL 32-36 Redcell Distribution WDTH 13 % 10.5-15 Platelet Count 240 CUMM 150-450 Mean Platelet Volume 9.1 um3 7.4-10.4 Polysegmented Neutrophil 70 % 38-83 Lymphocyte 24 % Low 25-47 Monocyte 4 % 0-13 Eosenophil 2 % 0-6 Absolute Neutrophil Count 8.6 RBC Morphology NORMAL Laboratory test finding 06/06/2008 Fungus Culture NO GROWTH AFTER 29 Skin/Nails <SEE NOTE> Laboratory test finding 06/06/2008 Fungus Culture NO GROWTH AFTER 30 Skin/Nails <SEE NOTE> [id number] 04/06/2008 Ampicillin <=0.25 Clindamycin <=0.25 Levofloxacin 1 Linezolid 1 Penicillin <=0.12 Tetracycline >=16 Tigecycline <=0.12 Vancomycin <=0.5 [id number] 04/06/2008 Clindamycin <=0.25 Ciprofloxacin <=0.5 Erythromycin <=0.25 Gentamicin <=0.5 Levofloxacin <=0.12 Linezolid 2 Oxacillin <=0.25 Rifampin <=0.5 Trimeth-Sulfa <=10 Tetracycline <=1 Tigecycline <=0.12 Vancomycin 1 Culture And 04/03/2008 Culture MANY [STAPHYLOCO 31, 32 Sensitivity Sensitivity <SEE NOTE> CBC With Electronic 12/23/2007 White Blood Count 8.7 CUMM 4.8-10.8 Diff Red Cell Count 4.37 CUMM Low 4.6-6.2 Hemoglobin 14.0 g/dL 14.0-18.0 Hematocrit 39 % Low 42-52 Mean Corpuscular Volume 90 um3 80-94 Mean Corpuscular Hemoglob 32 pg High 27-31 Mean Corpuscular HGB Cone 36 g/dL 32-36 Redcell Distribution WDTH 13 % 10.5-15 Platelet Count 201 CUMM 150-450 Mean Platelet Volume 9.3 um3 7.4-10.4 Gran % 53.7 % 38-83 Lymph % 22.3 % 20-45 Mononuclear % 14.6 % High 1-9 Eosinophil % 8.9 % High 0-6 Basophil % 0.5 % 0-2 Abs Lymphs 1.9 1.0-4.8 Abs Mononuclear 1.3 High 0-0.8 Absolute Neutrophil Count 4.7 1.5-7.7 Abs Eosinophils 0.8 High 0-0.6 Abs Basophils 0 0-0.2 Blood Culture 10/27/2007 Blood Culture NG5 33 [id number] 10/27/2007 Sodium 138 mmol/L 135-145 Potassium 3.4 mmol/L Low 3.5-5.0 Chloride 105 mmol/L 101-111 Co2 (Carbon Dioxide) 26.0 mmol/L 22-32 Anion Gap 7.0 mmol/L 2-11 34 Glucose 91 mg/dL 70-105 BUN 8 mg/dL 6-24 Creatinine 0.7 mg/dL 0.5-1.4 One Over Creatinine 1.42 BUN/Creatinine Ratio 11.4 8-20 Calcium 8.5 mg/dL 8.1-9.9 35 Total Protein 6.8 GM/DL 6.2-8.1 Albumin 3.8 GM/DL 3.6-5.4 Globulin 3.0 GM/DL 2-4 Albumin/Globulin Ratio 1.3 1-3 Bilirubin Total 1.0 mg/dL 0.4-1.5 Alkaline Phosphatase 57 U/L 50-176 Alt (SGPT) 16 U/L Low 17-63 Ast (Sgot) 15 U/L 12-42 CBC With Manual Diff Stat 10/27/2007 White Blood Count 13.6 CUMM High 4.8- 10.8 Red Cell Count 4.62 CUMM 4.6-6.2 Hemoglobin 14.3 g/dL 14.0-18.0 Hematocrit 42 % 42-52 Mean Corpuscular Volume 90 um3 80-94 Mean Corpuscular Hemoglob 31 pg 27-31 Mean Corpuscular HGB Cone 34 g/dL 32-36 Redcell Distribution WDTH 13 % 10.5-15 Platelet Count 228 CUMM 150-450 Mean Platelet Volume 10.2 um3 7.4-10.4 Polysegmented Neutrophil 77 % 38-83 Band Neutrophil 6 % 0-8 Lymphocyte 8 % 5-47 Monocyte 7 % 0-13 Atypical Lymph 2 % 0-6 Absolute Neutrophil Count 11.2 RBC Morphology NORMAL Erythrocyte Sed Rate Stat 10/27/2007 Erythrocyte Sed Rate 22 MM/HR High 0- 15 CBC With Electronic Diff 10/04/2007 White Blood Count 5.9 CUMM 4.8-10.8 36 Stat Red Cell Count 4.96 CUMM 4.6-6.2 36 Hemoglobin 15.6 g/dL 14.0-18.0 36 Hematocrit 45 % 42-52 36 Mean Corpuscular Volume 90 um3 80-94 36 Mean Corpuscular Hemoglob 32 pg High 27-31 36 Mean Corpuscular HGB Cone 35 g/dL 32-36 36 Redcell Distribution WDTH 13 % 10.5-15 36 Platelet Count 206 CUMM 150-450 36 Mean Platelet Volume 10.0 um3 7.4-10.4 36 Gran % 61.2 % 38-83 36 Lymph % 27.9 % 20-45 36 Mononuclear % 6.9 % 1-9 36 Eosinophil % 3.2 % 0-6 36 Basophil % 0.8 % 0-2 36 Abs Lymphs 1.7 1.0-4.8 36 Abs Mononuclear 0.4 0-0.8 36 Absolute Neutrophil Count 3.6 1.5-7.7 36 Abs Eosinophils 0.2 0-0.6 36 Abs Basophils 0 0-0.2 36 P33S 10/04/2007 Sodium 139 mmol/L 135-145 36 Potassium 3.9 mmol/L 3.5-5.0 36 Chloride 111 mmol/L 101-111 36 Co2 (Carbon Dioxide) 23.0 mmol/L 22-32 36 Anion Gap 5.0 mmol/L 2-11 36, 37 Glucose 102 mg/dL 70-105 36 BUN 5 mg/dL Low 6-24 36 Creatinine 0.7 mg/dL 0.5-1.4 36 One Over Creatinine 1.42 36 BUN/Creatinine Ratio 7.1 Low 8-20 36 Calcium 8.8 mg/dL 8.1-9.9 36, 38 Total Protein 6.7 GM/DL 6.2-8.1 36 Albumin 4.1 GM/DL 3.6-5.4 36 Globulin 2.6 GM/DL 2-4 36 Albumin/Globulin Ratio 1.6 1-3 36 Bilirubin Total 1.0 mg/dL 0.4-1.5 36 Alkaline Phosphatase 60 U/L 50-176 36 Alt (SGPT) 20 U/L 17-63 36 Ast (Sgot) 19 U/L 12-42 36 1 SEE RESULT BELOW Name: KENDRICK HUTCHINSON III : [address]: Jackson Reddy MD Acct: [id number] Unit: [id number] AGE: 32 Location: LAB Re11/16/17 SEX: M Status: REG REF SPEC: [id number] CLAUDIA: 11/16/17-[address] [facility] [address]: Jackson Reddy MD REQ: [id number] RECD: 11/16/17-2844 STATUS: MIKE WEINSTEIN DR: Shahab Lopez MD _ ORDERED: FNA INTERP RPT, CYTO ADEQ-1ST P Flow cytometry has been performed at [facility], [place], [place]. The testing reveals: FINAL DIAGNOSIS: Specimen Source: Inguinal lymph node Flow cytometry immunophenotypic analysis: No immunophenotypic abnormality or evidence of lymphoproliferative disorder identified. Interpretative data: Lymphocytes: 94% of WBCs B-cells: 9% lymphocytes with no evidence of light chain restriction or immunophenotypic abnormality. T-cells/NK cells: No aberrant population detected. Markers tested: CD3, CD5, CD7, CD10, CD19, CD20, CD23, CD45, kappa surface light chains, lambda surface light chains, 7-AAD. Quality Assessment: Acceptable Viability: Acceptable Viable lymphocytes (7-AAD): 100% Specimen received within validated guidelines. A Veras-Giemsa stained slide prepared from the flow cytometry specimen was examined for quality purposes. Electronically signed by: Shahab Lopez MD 11/18/17 1000 Technical component performed by: [place] [address] Manufacturing Advisor: Douglas Caro II, MD, PhD. CONTINUED ON NEXT PAGE DEPARTMENT OF PATHOLOGY, [address] [place] [id number] Shahab Lopez M.D. Director CLIA # [id number] RUN DATE: 11/19/17 [facility] LAB LIVE PAGE 2 Patient: KENDRICK HUTCHINSON III [id number] (Continued) ADDENDUM (Continued) Addendum Signed (signature on file) Ludy Mead MD 01/27 1523 FINAL DIAGNOSIS Left inguinal lymph node, fine needle aspiration by palpation: -- Benign? reactive lymph node. See comment. Comment: The aspirate smear is amply cellular and demonstrates mixed lymphoid elements with predominantly small T-cell population. Scattered macrophages and dendritic elements are seen. No morphologic features of a lymphoproliferative disorder or Hodgkin's disease are seen. No evidence of metastasis seen no acute inflammatory process or granulomas identified. The morphologic features are compatible with the clinical exam and clinical scenario. A concurrent flow cytometric evaluation demonstrates no evidence of an immunophenotypic abnormality. The procedure was explained to and understood by the patient. Signed consent was obtained and a time out procedure was performed at the bedside to verify patient identity and biopsy site. Fine needle aspiration biopsy was performed times 1 with a 25 gauge needle on 2 cm soft mobile left inguinal lymph node. Adequacy was assessed by fast stain technique. The procedure was tolerated well without complications. A. INGUINAL - LEFT INGUINAL LYMPH NODE FINE NEEDLE ASPIRATION BY PALPATION CONTINUED ON NEXT PAGE DEPARTMENT OF PATHOLOGY, [address] [place] [address] Shahab Lopez M.D. Director [facility] # [id number] RUN DATE: 11/19/17 [facility] LAB LIVE PAGE 3 Patient: KENDRICK HUTCHINSON III [id number] (Continued) CLINICAL HISTORY (Continued) CLINICAL HISTORY 2 cm soft left inguinal node. IMMEDIATE INTERPRETATION Pass 1-adequate GROSS DESCRIPTION Fine needle aspiration by palpation x 1 pass with 1 Alcohol fixed slide(s) and Specimen sent to [facility] for Flow cytometry [place], [place] on 10/27 Signed by and Reported on: Shahab Lopez MD 12/28 1004 END OF REPORT DEPARTMENT OF PATHOLOGY, [address] [place] [address] Shahab Lopez M.D. Director [facility] # [id number] 2 FINAL DIAGNOSIS: Specimen Source: Inguinal lymph node Flow cytometry immunophenotypic analysis: No immunophenotypic abnormality or evidence of lymphoproliferative disorder identified. Interpretative data: Lymphocytes: 94% of WBCs B-cells: 9% lymphocytes with no evidence of light chain restriction or immunophenotypic abnormality. T-cells/NK cells: No aberrant population detected. Markers tested: CD3, CD5, CD7, CD10, CD19, CD20, CD23, CD45, kappa surface light chains, lambda surface light chains, 7-AAD. Quality Assessment: Acceptable Viability: Acceptable Viable lymphocytes (7-AAD): 100% Specimen received within validated guidelines. A Veras-Giemsa stained slide prepared from the flow cytometry specimen was examined for quality purposes. Electronically signed by: Shahab Lopez MD 11/18/17 1000 Technical component performed by: [facility] [place] [address] Manufacturing Advisor: Douglas Caro II, MD, PhD. 3 Because ethnic data is not always readily available, this report includes an eGFR for both -Americans and non- Americans. The National Kidney Disease Education Program (NKDEP) does not endorse the use of the MDRD equation for patients that are not between the ages of 18 and 70, are , have extremes of body size, muscle mass, or nutritional status, or are non- or non-. According to the National Kidney Foundation, irrespective of diagnosis, the stage of the disease is based on the level of kidney function: Stage Description GFR(mL/min/1.73 m(2)) 1 Kidney damage with normal or decreased GFR 90 2 Kidney damage with mild decrease in GFR 60-89 3 Moderate decrease in GFR 30-59 4 Severe decrease in GFR 15-29 5 Kidney failure <15 (or dialysis) 4 Acute inflammation: >10.00 5 NO GROWTH AFTER 5 DAYS 6 NO GROWTH AFTER 5 DAYS 7 Anion gap measurement may be of limited value in the presence of any alkalosis, especially in a combined acid base disorder. . 8 Note change in reference range as of 12/01/07. The change was based on recommendations from the [place] [employer]. 9 Please note change in reference range effective 07 . 10 Because ethnic data is not always readily available, this report includes an eGFR for both -Americans and non- Americans. The National Kidney Disease Education Program (NKDEP) does not endorse the use of the MDRD equation for patients that are not between the ages of 18 and 70, are , have extremes of body size, muscle mass, or nutritional status, or are non- or non-. According to the National Kidney Foundation, irrespective of diagnosis, the stage of the disease is based on the level of kidney function: Stage Description GFR(mL/min/1.73 m(2)) 1 Kidney damage with normal or decreased GFR 90 2 Kidney damage with mild decrease in GFR 60-89 3 Moderate decrease in GFR 30-59 4 Severe decrease in GFR 15-29 5 Kidney failure <15 (or dialysis) 11 TOXIC LEVELS: GREATER THAN 150 MCG/ML @ 4HR POST INGEST GREATER THAN 50 MCG/ML @ 12HR POST INGEST The detection limit for ACETAMINOPHEN is 10.0 mcg/ml . Values less than 10.0 mcg/ml cannot be accurately measured. . 12 The detection limit for ETHANOL is 10.0 mg/dl . Values less than 10.0 mg/dl cannot be accurately measured. . 13 The detection limit for SALICYLATE is 4.0 mg/dl. Values less than 4.0 mg/dl cannot be accurately measured. . 14 THE URINE SPECIMEN WAS TESTED AT THE LISTED CUTOFFS: DRUG CLASS TEST LEVEL (NG/ML) AMPHETAMINES 300 BARBITUATES 200 BENZODIAZEPINE METABOLITES 200 COCAINE METABOLITES 300 CANNABINOIDS 25 OPIATES 200 PCP 25 THIS IS A SCREENING PROCEDURE. POSITIVE RESULTS ARE NOT CONFIRMED. SPECIMEN WAS RECEIVED WITHOUT CHAIN OF CUSTODY. RESULTS SHOULD BE USED FOR MEDICAL PURPOSES ONLY. . 15 Anion gap measurement may be of limited value in the presence of any alkalosis, especially in a combined acid base disorder. . 16 Note change in reference range as of 12/01/07. The change was based on recommendations from the [place] [employer]. 17 Please note change in reference range effective 07 . 18 A metabolite of Naproxen, O-desmethylnaproxen, has been shown to interfere with the Sloan- method for measuring total bilirubin. Samples from patients who have taken Naproxen have shown spurious elevation in total bilirubin levels. 19 Because ethnic data is not always readily available, this report includes an eGFR for both -Americans and non- Americans. The National Kidney Disease Education Program (NKDEP) does not endorse the use of the MDRD equation for patients that are not between the ages of 18 and 70, are , have extremes of body size, muscle mass, or nutritional status, or are non- or non-. According to the National Kidney Foundation, irrespective of diagnosis, the stage of the disease is based on the level of kidney function: Stage Description GFR(mL/min/1.73 m(2)) 1 Kidney damage with normal or decreased GFR 90 2 Kidney damage with mild decrease in GFR 60-89 3 Moderate decrease in GFR 30-59 4 Severe decrease in GFR 15-29 5 Kidney failure <15 (or dialysis) 20 COMMENTS? ABSCESS 21 STAPHYLOCOCCUS AUREUS 22 NO GROWTH AFTER 5 DAYS 23 NO GROWTH AFTER 5 DAYS 24 THERAPEUTIC TARGET FOR THE TREATMENT OF DIABETES MELLITUS PATIENTS IS <7% HBA1C, AND IN SELECTIVE PATIENTS <6.0%. PLEASE REFER TO [place] [employer]ATION DIABETIC CARE GUIDELINES FOR FURTHER INFORMATION. 25 The detection limit for ETHANOL is 10.0 mg/dl . Values less than 10.0 mg/dl cannot be accurately measured. . 26 Anion gap measurement may be of limited value in the presence of any alkalosis, especially in a combined acid base disorder. . 27 Note change in reference range as of 12/01/07. The change was based on recommendations from the [place] [employer]. 28 Please note change in reference range effective 07 . 29 NO GROWTH AFTER 2 WEEKS 30 NO GROWTH AFTER 3 WEEKS 31 ULCER ON THE LEFT FOOT 32 MANY [STAPHYLOCOCCUS AUREUS] MANY [BETA STREP GROUP B] STAPHYLOCOCCUS AUREUS BETA STREP GROUP B 33 NO GROWTH AFTER 5 DAYS 34 Anion gap measurement may be of limited value in the presence of any alkalosis, especially in a combined acid base disorder. . 35 Please note change in reference range effective 07 . 36 COMMENTS? N 37 Anion gap measurement may be of limited value in the presence of any alkalosis, especially in a combined acid base disorder. . 38 Please note change in reference range effective 07 . Procedures Date CPT Code Description Status Comment 09/09/2017 14652 Amputation Foot Midtarsal Completed 09/09/2017 11835 Amputation Foot Midtarsal Completed 09/09/2017 70181 Osteotomy Calcaneus Dwyers Or Chambers Type Completed Procedure 09/09/2017 37157 Osteotomy Calcaneus Dwyers Or Chambers Type Completed Procedure 09/09/2017 45400 Transfer Tendon Leg Or Ankle Superficial Completed 09/09/2017 87641 Transfer Tendon Leg Or Ankle Superficial Completed 09/09/2017 94563 Tenotomy Achilles Tendon General Anesthesia Completed LT 09/26/2012 54117 Rad Exam; Foot Limited Completed 09/26/2012 00367 Rad Exam; Foot Limited Completed 09/26/2012 07843 Rad Exam; Ankle Comp Completed 09/26/2012 96150 Rad Exam; Ankle Comp Completed 12/07/2008 31918 EKG Tracing & Interpretation Completed Encounters Type Date Location Provider CPT E/M Dx Office Visit 12/27/2017 [facility] Sung Cole M.D. 44925 G60.0 11:15a Services [facility] M86.172 Office Visit 11/10/2017 3[facility] Jackson Reddy 60742 R59.9 Of [facility] [place] Office Visit 10/12/2017 10:45a [facility] Jackson Reddy 77282 R22.9 Of [place] Office Visit 09/09/2017 2:23p [facility] Jose Ford, 70796 M86.672 Infectious Diseases MJennifer L03.116 G60.0 Office Visit 09/07/2017 11:15a [facility] Choi 72626 M86.172 C.M.ADalton Kohler Office Visit 09/03/2017 10:00a [facility] [place] [address] M86.172 C.M.A. G60.0 Q66.7 L03.116 Office Visit 08/31/2017 10:30a [facility] [address] M86.172 C.M.A. Q66.7 G60.0 L03.116 Office Visit 09/26/2012 11:15a [facility], 40163 356.9 CJake Kohler Office Visit 12/21/2008 1:45a [facility], Farzad Gil D.O. 86960 977.9 Hospitalists 977.9 Office Visit 12/20/2008 12:15a [facility], Farzad Gil D.O. 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 Office Visit 10/02/2008 9:20a DO Not Use [employer] [facility], 71811 359.1 [place] M.D.,FACP 707.15 Office Visit 08/14/2008 1:00p DO Not Use [employer] [facility], 98393 707.15 [place] M.D.,FACP 359.1 380.22 Office Visit 07/13/2008 11:40a DO Not Use [employer] [facility], 28731 359.1 [place] M.D.,FACP 607.84 301.7 707.15 Office Visit 06/05/2008 1:30p DO Not Use [employer] [place] [address] 707.15 [place] 564.00 Office Visit 05/22/2008 4:00p DO Not Use [employer] [facility], 44365 707.15 [place] M.D.,FACP 719.45 Office Visit 03/26/2008 11:40a DO Not Use [employer] [facility], 61341 707.15 [place] M.D.,FACP 359.1 719.45 Office Visit 02/16/2008 10:40a DO Not Use [employer] [facility], 50908 707.15 [facility] Bernadette.Allan,FACP Office Visit 01/16/2008 10:20a DO Not Use [employer] [facility], 82427 707.15 [facility] M.Allan,FACP 359.1 Office Visit 01/02/2008 1:40p DO Not Use [employer] [facility], 83254 359.1 [place] Fleming.Allan,FACP 682.6 564.00 Office Visit 12/22/2007 2:00p DO Not Use Federal Java Developer AT [facility], 61688 682.6 Uvaldecamron Fleming.Allan Office Visit 12/14/2007 3:20p DO Not Use [employer] [facility], 71173 707.15 [place] Fleming.Allan,FACP 359.1 846.1 Office Visit 11/18/2007 10:00a DO Not Use [employer] [facility], 55137 359.1 [facility] Bernadette.Allan,FACP 682.6 707.15 Office Visit 10/28/2007 10:40a DO Not Use [employer] [facility], 41240 682.6 [facility] Bernadette.Allan,FACP 359.1 707.15 Office Visit 10/17/2007 9:00a DO Not Use [employer] [facility], 92657 359.1 Krishan Kohler,FACP 707.15 Office Visit 08/11/2007 8:30a DO Not Use [employer] [place] [address] 707.15 [place] 359.1 Office Visit 07/13/2007 11:00a DO Not Use [employer] [place] [address] 707.15 [facility] Office Visit 05/02/2007 9:40a DO Not Use [employer] [place] [address] 359.1 [facility] Plan of Care Future Appointment(s):03/04/2018 10:15 am - Sung Cole M.D. at [facility]12/27/2017 - Sung Cole M.D.G60.0 Hereditary motor and sensory neuropathyNew Medication:Gabapentin 300 mgFollow up:Follow up in 6 iqjwhP67.172 Other acute osteomyelitis, left ankle and foot
--- OUTSIDE RECORDS SUMMARY | 2018-01-01 05:17 | XMS REPORT ---
:1985 External Reference #:[id number] Author Organization [facility] Address [address] [place] [address] Phone [phone] Care Team Providers Name Role Phone Elliot Lorenz MD Primary Care Physician Unavailable Payers Type Date Identification Numbers Payment Provider Subscriber Medicaid Expires: Policy Number: [id number] Medicaid Kendrick Hutchinson III 2017 Group Name: 1 1 [address] PayID: [id number] [place] [address] Commercial Policy Number: [id number] Wilton Barajas Hutchinson III Group Number: [id number] [address] PayID: [id number] [place] [address] Commercial Expires: 2017 Policy Number: [id number] Wilton Barajas Hutchinson III PayID: [id number] [address] [place] [address] Workers Compensation Onset: 2008 Policy Number: [place] Kendrick Barajas Jasper [id number] [facility] Group Number: [id number] [facility] PayID: [id number] [place] [address] Problems Date Description Provider Status Onset: 10/17/2007 [...] Family Member(s) Problem(s) Comments Mother Cancer, Lung Social History Type Date Description Comments Marital Status Single Lives With Alone Occupation Disabled Cigarette Use current cigarette smoker Cigarette Use [...] Form Strength Qnty SIG Indications Ordering Provider Oxycodone HCL 11/22 Active Tablets 5mg 10tab take 1 by [facility] s mouth twice Beverly, daily as MD needed for pain Cane 11/05 Active Misc 1unit standard Santi s adjustable Beverly height cangiovanna. Ibuprofen Active Tablets 800mg by mouth Unknown /0000 three times a day as needed Doxycycline 09/17 Hx Capsules 100mg 28cap 1 cap by L03.116 [facility] Hyclate s mouth twice Beverly, a day with MD food Gabapentin 09/10 Hx Capsules 300mg 60cap 1 tab by [facility] s twice daily MD Beverly Oxycodone HCL 09/03 Hx Capsules 5mg 5caps take 1 at night for Jimbo, - pain. M.D. 09/03 Oxycodone HCL 09/03 Hx Tablets 5mg 35tab take 1 by s mouth every Jimbo, 4-6 hours M.D. as needed pain. Methadone HCL 12/07 Hx Tablets 10mg 56tab 1 tab po 359.1 [place] /2008 s tid for 1 D. Radha - week, then Jose F,FACP 09/06 2 bid Symbyax 12/07 Hx Capsules 6-25mg 30cap 1 po qhs 296.89 [place] /2008 s Sunny Gallagher M.D.,[facility] 09/06 Dicloxacillin 11/27 Hx Capsules 500mg 40cap 1 qid po 682.3 s for 10 days Sunny Gallagher M.D.,[facility] 12/07 Amitriptyline 11/27 Hx Tablets 10mg 90tab 1 qam, 2 po 359.1 s qhs Sunny Gallagher M.D.,[facility] 09/06 Opana 11/27 Hx Tablets 10mg 90tab 1-2 q4 prn 707.15 s Sunny Gallagher M.D.,[facility] 09/06 ( /2018 acting) Opana ER 11/15 Hx Tablets ER 40mg 90tab 1 tab po 359.1 12HR s q8h Sunny Gallagher M.D.,[facility] 12/07 Opana 11/15 Hx Tablets 5mg 90tab 1-2 po q4h 707.15 s prn Sunny Gallagher M.D.,[facility] 11/27 Flexeril 10/31 Hx Tablets 10mg 60tab 1 po tid s obedn Sunny Gallagher M.D.,[facility] 09/06 Opana ER 10/31 Hx Tablets ER 30mg 180ta 2 po q8h 707.15 12HR bs Sunny Gallagher M.D.,[facility] 11/15 Keflex 08/23 Hx Capsules 500mg 30cap tid for 10 s days Sunny Gallagher M.D.,[facility] 10/02 Actiq 08/23 Hx Lollipop 400mcg 60uni 1 q3h prn 707.15 ts Sunny Gallagher M.D.,[facility] 10/02 Actiq 08/14 Hx Lollipop 200mcg 30uni tid buccal 707.15 ts Sunny Kenyon M.D.,[facility] 08/23 Cipro HC Otic 08/14 Hx Suspension 10ml 3 ggt 380.22 affected Allan Garcia, - ear qd for M.D.,[facility] 11/27 1 week Levitra 07/13 Hx Tablets 10mg 12tab qd prn 607.84 s Sunny Gallagher M.D.,[facility] 09/06 Morphine 07/13 Hx Solution 20mg/ml 120ml 1 ml po q4h 707.15 Sulfate prn Allan Garcia, - breakthroug Jose F,[facility] 08/14 h pain Opana ER 07/13 Hx Tablets ER 40mg 90tab 1 tab po 707.15 12HR s q8h Sunny Gallagher M.D.,[facility] 10/31 Avelox 06/05 Hx Tablets 400mg 10tab 1 qd x 10 707.15 s days Sunny Gallagher M.D.,[facility] 07/13 Magnesium 06/05 Hx Solution 1.745GM/30 3unit 1 bottle 564.00 ML s prn Allan Garcia, - constipatio Jose F,[facility] 11/27 n Oxyfast 05/22 Hx Concentrate 20mg/ml 30ml 0.5-1 ml po 707.15 anart q2h prn , Kerrie, - severe pain Bernadette.DDalton 07/13 Augmentin 05/22 Hx Suspension 250/5ML 200ml 10 ml gt 707.15 Rec bid for 10 D. Sunny Garcia days Jose F,[facility] 07/13 Opana 03/26 Hx Tablets 10mg 100ta 1-2 q4 prn 707.15 bs Sunny Gallagher M.D.,[facility] 11/15 ( acting) Opana ER 01/15 Hx Tablets ER 30mg 90tab po q8h 707.15 12HR s Sunny Gallagher M.D.,[facility] 07/13 Miralax 01/01 Hx Packet 3350NF 30uni 17 gm qd 564.00 ts Sunny Kenyon M.D.,[facility] 01/01 Colace 01/01 Hx Capsules 100mg 60cap 1 po bid 564.00 s Sunny Gallagher M.D.,[facility] 09/06 Miralax 01/01 Hx Powder Per Bottle 527un per Direction its instruction Sunny Gallagher on Jose F,[facility] 09/06 Opana ER 12/21 Hx Tablets ER 10mg 90tab 2 tabs po 707.15 12HR s q8h Sunny Gallagher M.D.,[facility] 01/15 Augmentin 12/21 Hx Tablets 875mg 28tab 1 tab po 682.6 s bid x 14 , Kerrie, - days Bernadette.DDalton 01/01 Opana ER 12/13 Hx Tablets ER 15mg 90tab q8h po 707.15 12HR s Sunny Gallagher M.D.,[facility] 12/21 Percocet 12/13 Hx Tablets 10-325mg 210ta 1-2 tab po 707.15 bs qid Sunny Kenyon M.D.,[facility] 03/26 Opana ER 11/17 Hx Tablets ER 15mg 60tab q12h po 707.15 12HR s Sunny Gallagher M.D.,[facility] 12/13 Duragesic 10/27 Hx Patches 72HR 50mcg/HR 15uni 1 patch 707.15 ts q48h Sunny Gallagher M.D.,[facility] 11/17 Percocet 10/16 Hx Tablets 5-325mg 240ta 1-2 po qid 707.15 bs prSunny Garg M.D.,[facility] 12/13 Duragesic 10/16 Hx Patches 72HR 25mcg/HR 30uni 1-2 patches ts topical Allan Garcia, - q2days Jose F,[facility] 10/27 Duragesic 10/03 Hx Patches 72HR 50mcg/HR 10uni 1 patch ts q72h Sunny Gallagher M.D.,[facility] 10/16 Duragesic 08/23 Hx Patches 72HR 25mcg/HR 10uni apply on ts every 72 Allan Garcia - diya Kohler,[facility] 10/03 Augmentin 08/10 Hx Tablets 875mg 28tab si bid 707.15 s x 14 days Sunny Gallagher M.D.,[facility] 10/16 Vicodin 08/10 Hx Tablets 5-500mg 90tab 1 q 4-6 707.15 s hours prn Sunny Gallagher M.D.,[facility] 10/16 Vicodin 07/12 Hx Tablets 5-500mg 40tab 1 q 4-6 707.15 s hours prn Sunny Gallagher M.D.,[facility] 08/10 Cephalexin 07/12 Hx Capsules 500mg 40cap 1 quid 707.15 s Sunny Gallagher M.D.,[facility] 08/10 Vicodin 05/02 Hx Tablets 5-500mg 45tab 1 q 6 hours 359.1 s prn pain Sunny Gallagher M.D.,[facility] 08/10 Doxycycline 05/02 Hx Capsules 100mg 20cap si bid 359.1 Moose Monohydr s x 10 days Sunny Gallagher M.D.,[facility] 08/10 Trazodone HCL Hx Tablets 50mg 30tab One tid s Sunny Gallagher M.D.,[facility] 08/10 Atarax Hx Sunny Gallagher M.D.,[facility] 08/10 Haldol Hx Solution 5mg/ml 1 PO qd Sunny Gallagher M.D.,[facility] 08/10 Augmentin 00/00 Hx Tablets 500-125mg 1 by mouth Unknown /0000 twice a day - 09/06 Amoxicillin/Cl 0000 Hx Tablets 875-125mg 20tab 1 by mouth Santi avulanate /0000 s twice a day Nii Paul MD Vital Signs Date Vital Result Comment 12/20/2017 Height 72 inches 6'0" Weight 215.00 [...] H/L Range Note Laboratory test 11/16/2017 Cytology Non-Travel Accommodation Inspector SEE RESULT BELOW 1 finding Leukemia/Lymphoma 11/16/2017 [...] 12/20/2008 Ua Color YELLOW Appearance-Urine CLEAR Specific Quentin-Ur 1.014 1.010-1.030 Esterase-Urine NEGATIVE Negative Nitrite NEGATIVE Negative Pynmxlrbzxnn-Mi-DPN NEGATIVE Negative Protein-Urine NEGATIVE Negative PH-Urine 5.5 [...] [address]: Jackson Reddy MD Acct: [id number] Unit: [id number] AGE: 32 Location: LAB Re11/16/17 SEX: M Status: REG REF SPEC: [id number] CLAUDIA: 11/16/17-[address]: Jackson Reddy MD REQ: [id number] RECD: 11/16/179755 STATUS: MIKE WEINSTEIN DR: Shahab Lopez MD _ ORDERED: FNA INTERP RPT, CYTO ADEQ-1ST P Flow cytometry has been performed at [facility], [place], [place]. The testing reveals: FINAL DIAGNOSIS: Specimen [...] MD 11/18/17 1000 Technical component performed by: [address] [address] Corporate Statistical Financial Analyst: Douglas Caro II, MD, PhD. CONTINUED ON NEXT PAGE DEPARTMENT OF PATHOLOGY, [address] [place] [address] Shahab Lopez M.D. Director MARLENY # [id number] RUN DATE: 11/19/17 [facility] LAB LIVE PAGE 2 Patient: JASPERKENDRICK III [id number] (Continued) ADDENDUM (Continued) Addendum Signed (signature on [...] CONTINUED ON NEXT PAGE DEPARTMENT OF PATHOLOGY, [address] [place] [address] Shahab Lopez M.D. Director [facility] # [id number] RUN DATE: 11/19/17 [facility] LAB LIVE PAGE 3 Patient: JASPERKENDRICK Karl OSMAN [id number] (Continued) CLINICAL HISTORY (Continued) CLINICAL HISTORY 2 cm soft left inguinal node. IMMEDIATE INTERPRETATION Pass 1-adequate GROSS DESCRIPTION Fine needle aspiration by palpation x 1 pass with 1 Alcohol fixed slide(s) and Specimen sent to [facility] for Flow cytometry [place], [place] on 10/27 Signed by and Reported on: Shahab Lopez MD 12/28 1004 END OF REPORT DEPARTMENT OF PATHOLOGY, [address] [place] [address] Shahab Lopez M.D. Director [facility] # [id number] 2 FINAL DIAGNOSIS: Specimen Source: Inguinal lymph [...] MD 11/18/17 1000 Technical component performed by: [place] [address] Corporate Statistical Financial Analyst: Douglas Caro II, MD, PhD. 3 Because [...] change was based on recommendations from the [employer]. 9 Please note change in [...] change was based on recommendations from the [employer]. 17 Please note change in reference range effective 07 . 18 A metabolite of Naproxen, O-desmethylnaproxen, has been shown to interfere with the [place] method for measuring total bilirubin. Samples from [...] IN SELECTIVE PATIENTS <6.0%. PLEASE REFER TO [place] [employer] DIABETIC CARE GUIDELINES FOR FURTHER [...] change was based on recommendations from the [employer]. 28 Please note change in [...] Date CPT Code Description Status Comment 09/09/2017 01631 Amputation Foot Midtarsal Completed 09/09/2017 36024 Amputation Foot Midtarsal Completed 09/09/2017 14323 Osteotomy Calcaneus Dwyers Or Chambers Type Completed Procedure 09/09/2017 59722 Osteotomy Calcaneus Dwyers Or Chambers Type Completed Procedure 09/09/2017 51901 Transfer Tendon Leg Or Ankle Superficial Completed 09/09/2017 44419 Transfer Tendon Leg Or Ankle Superficial Completed 09/09/2017 95716 Tenotomy Achilles Tendon General Anesthesia Completed LT 09/26/2012 09675 Rad Exam; Foot Limited Completed 09/26/2012 20289 Rad Exam; Foot Limited Completed 09/26/2012 65499 Rad Exam; Ankle Comp Completed 09/26/2012 65448 Rad Exam; Ankle Comp Completed 12/07/2008 37002 EKG Tracing & Interpretation Completed Encounters Type Date Location Provider CPT E/M Dx Office Visit 11/10/2017 [facility] Jackson Reddy, 33128 R59.9 3:45p Of [facility] [place] Office Visit 10/12/2017 [facility] Jackson Reddy, 09401 R22.9 10:45a Of [facility] [place] [facility] [address]168 M86.672 2:23p Infectious Diseases Jose F Ford L03.116 G60.0 Office Visit 09/07/2017 11:15a [facility] Josef Choi 23479 M86.172 Maryanne.MBobbi Kohler Office Visit 09/03/2017 10:00a [facility] [address] M86.172 C.M.A. G60.0 Q66.7 L03.116 Office Visit 08/31/2017 10:30a [facility] [address] M86.172 C.M.A. Q66.7 G60.0 L03.116 Office Visit 09/26/2012 11:15a [facility] Josef Choi, 64337 356.9 C.MBobbi Kohler Office Visit 12/21/2008 1:45a [facility], Farzad Gil D.O. 49747 977.9 Hospitalists 977.9 Office Visit 12/20/2008 12:15a [facility],brendan Gil D.O. 63827 977.9 Hospitalists Office Visit 12/07/2008 9:20a DO Not Use Chief Executive Officer AT [place]. [place], 41953 359.1 Krishan Kohler,FAC 682.3 296.89 426.82 Office Visit 11/27/2008 10:20a DO Not Use Chief Executive Officer AT [facility], [address]64 682.3 [place] M.D.,FACP 359.1 008.41 Office Visit 11/13/2008 9:45a [facility] Mg Mason, 47514 805.4 Chief Executive Officer M.D. Office Visit 10/02/2008 9:20a DO Not Use Chief Executive Officer AT [facility], [address]367 359.1 [place] M.D.,FACP 707.15 Office Visit 08/14/2008 1:00p DO Not Use Chief Executive Officer AT [facility], 60858 707.15 [place] M.D.,FACP 359.1 380.22 Office Visit 07/13/2008 11:40a DO Not Use Chief Executive Officer AT [facility], [address]3734 359.1 [facility] M.D.,FACP 607.84 301.7 707.15 Office Visit 06/05/2008 1:30p DO Not [place] [address] 707.15 [place] 564.00 Office Visit 05/22/2008 4:00p DO Not Use Chief Executive Officer AT [facility], [address]456 707.15 [place] M.D.,FACP 719.45 Office Visit 03/26/2008 11:40a DO Not Use Chief Executive Officer AT [facility], [address] 707.15 [facility] M.D.,FACP 359.1 719.45 Office Visit 02/16/2008 10:40a DO Not Use Chief Executive Officer AT [facility], [address]03 707.15 [facility] M.D.,FACP Office Visit 01/16/2008 10:20a DO Not Use Chief Executive Officer AT [facility], [address]27 707.15 [place] M.D.,FACP 359.1 Office Visit 01/02/2008 1:40p DO Not Use Chief Executive Officer AT [facility], [address]85 359.1 [place] M.D.,FACP 682.6 564.00 Office Visit 12/22/2007 2:00p DO Not Use Chief Executive Officer AT Kerrie Steen, 24333 682.6 Krishan Kohler Office Visit 12/14/2007 3:20p DO Not Use Chief Executive Officer AT [facility], 13064 707.15 [facility] Bernadette.Allan,FACP 359.1 846.1 Office Visit 11/18/2007 10:00a DO Not Use Chief Executive Officer AT [facility], [address]6782 359.1 [facility] Bernadette.Allan,FACP 682.6 707.15 Office Visit 10/28/2007 10:40a DO Not Use Chief Executive Officer AT [facility], 33042 682.6 [facility] Bernadette.Allan,FACP 359.1 707.15 Office Visit 10/17/2007 9:00a DO Not Use Chief Executive Officer AT [facility], [address] 359.1 [facility] Bernadette.Allan,FACP 707.15 Office Visit 08/11/2007 8:30a DO Not [place] [address] 707.15 [facility] 359.1 Office Visit 07/13/2007 11:00a DO Not [place] [address] 707.15 [facility] Office Visit 05/02/2007 9:40a DO Not Use [place] [address] 359.1 [facility] Plan of Care Future Appointment(s):12/27/2017 11:15 am - Sung Cole M.D. at [facility]12/20/2017 - Santi Paul, MDM86.172 Other acute osteomyelitis, left ankle and footQ66.7 Congenital pes cavusReferral:[facility],Follow up:Follow Up: after gets brace
[2018-01-01 05:18] VITALS: BP 139/82
--- NOTE | 2018-01-01 05:19 | ED ---
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 EMS states that the patient got drunk and tore up his apartment. The police was called and the patient was arrested. He continued to cause a disturbance in his long-term cell, so he was cuffed to the bench by his right ankle. Patient continued to bang his head against the wall and kick his leg. Patient was brought to [facility] after causing bruising and abrasions to his right ankle. Patient is irritable and lethargic at arrival. - History of Current Complaint Stated Complaint: ANKLE PAIN Time Seen by Provider: 01/01/18 04:58 Hx Obtained From: EMS Mechanism Of Injury: Other - kicking legs while in cuffs Onset of Pain: Immediate Onset/Duration: Minutes Severity Currently: Mild Pain Intensity: 0 Pain Scale Used: 0-10 Numeric Timing: Constant Location: Is Discrete @ - right ankle Aggravating Factor(s): Nothing Alleviating Factor(s): Nothing Able to Bear Weight: Yes - Allergies/Home Medications Allergies/Adverse Reactions: Allergies Allergy/AdvReac Type Severity Reaction Status Date / Time divalproex sodium Allergy Severe Vomiting Verified 09/09/17 09:27 [From Depakote] acetaminophen [From Ultracet] AdvReac Intermediate GI Upset Verified 09/09/17 09 :27 tramadol [From Ultracet] AdvReac Intermediate GI Upset Verified 09/09/17 09:27 Home Medications: Home Medications NK [No Home Medications Reported] 01/01/18 [History Confirmed 01/01/18] PMH/Surg Hx/FS Hx/Imm Hx Previously Healthy: No Endocrine/Hematology History: Denies: Hx Diabetes, Hx Thyroid Disease Cardiovascular History: Denies: Hx Hypertension - ON CLONIDINE, Hx Pacemaker/ICD, Other Cardiovascular Problems/Disorders Respiratory History: Reports: Hx Asthma - A CHILD Denies: Other Respiratory Problems/Disorders History: Denies: Hx Dialysis, Hx Renal Disease, Other Problems/Disorders Musculoskeletal History: Reports: Hx Arthritis - left foot, Other Musculoskeletal History - "Muscular dystrophy" Sensory History: Denies: Hx Contacts or Glasses, Hx Hearing Aid Opthamlomology History: Denies: Hx Contacts or Glasses Neurological History: Reports: Hx Nerve Disease - charcot anny tooth Denies: Hx Seizures Comment Only: Other Neuro Impairments/Disorders - MUSCULAR DYSTROPHY Psychiatric History: Reports: Hx Anxiety, Hx Depression - A TEEN, Hx Substance Abuse - LONG AGO, USED POT Denies: Hx Panic Disorder - Surgical History Surgery Procedure, Year, and Place: 05/30/12 [place]OT [place] [facility] [place]OT [place] TO REMOVED INFECTION, [facility]. ADENOIDECTOMY, A CHILD,. FACIAL FRACTURES,. FIRST METATARSAL PINNING, Hx Anesthesia Reactions: No Infectious Disease History: No Infectious Disease History: Denies: Traveled Outside the [place] in Last 30 Days - Family History Known Family History: Negative: Hypertension - Social History Alcohol Use: Occasionally Hx Substance Use: No Substance Use Type: Reports: None Hx Tobacco Use: Yes Smoking Status (MU): Heavy Every Day Tobacco Smoker Amount Used/How Often: 1 ppd smoked for 18 years Review of Systems Negative: Fever Positive: Other - right ankle pain Positive: Other - right ankle bruising All Other Systems Reviewed And Are Negative: Yes Physical Exam - Summary Physical Exam Summary: Appearance: Well-appearing, Well-nourished, lying in bed comfortably Skin: Warm, dry, no obvious rash. Right ankle bruising and abrasions Eyes: sclera anicteric, no conjunctival pallor ENT: mucous membranes moist, pharynx appears normal Neck: Supple, nontender Respiratory: Clear to auscultation, no signs of respiratory distress Cardiovascular: Normal S1, S2. No murmurs. Normal distal pulses in tibial and radial bilaterally. Abdomen: Soft, nontender, normal active bowel sounds present Musculoskeletal: Normal, Strength/ROM Intact Neurological: A&Ox3, awake and alert, mentation is normal, speech is fluent and appropriate Psychiatric: affect is normal, does not appear anxious or depressed Triage Information Reviewed: Yes Vital Signs On Initial Exam: Initial Vitals Resp 16 01/01/18 05:10 Vital Signs Reviewed: Yes Diagnostics - Vital Signs Vital Signs Temp Pulse Resp BP Pulse Ox 01/01/18 05:15 97.9 F 86 18 139/82 99 01/01/18 05:10 16 - Laboratory Lab Statement: Any lab studies that have been ordered have been reviewed, and results considered in the medical decision making process. 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 In the ED course the patient was given Ativan. Patient will be sent back to long-term after receiving Ativan. Patient will be discharged with a dx of alcohol abuse and right ankle contusion and a prescription for 300. Patient is advised to follow up with PCP in 3 days. The patient is agreeable with this plan. Discharge - Sign-Out/Discharge Documenting (check all that apply): Patient Departure - Discharge Plan Condition: Good Disposition: HOME Patient Education Materials: Abuse of Alcohol (ED), Contusion in Adults (ED) Referrals: Elliot Lorenz MD [Primary Care Provider] - - Attestation Statements Document Initiated by Scribe: Yes Documenting Scribe: Garrett Prince Provider For Whom Scribe is Documenting (Include Credential): Kendrick Omalley MD Scribe Attestation: Garrett Mckeon, scribed for Kendrick Omalley MD on 01/01/18 at 0541.
== END 2018-01-01 05:18 | disposition home or self-care (01) ==
LOC: ED 04:56
DX: F10.10 Alcohol abuse, uncomplicated (principal); S90.01XA Contusion of right ankle, initial encounter; X58.XXXA Exposure to other specified factors, initial encounter; Y92.039 Unspecified place in apartment as the place of occurrence of the external cause; Z88.8 Allergy status to other drugs, medicaments and biological substances; I10 Essential (primary) hypertension; F17.200 Nicotine dependence, unspecified, uncomplicated; Z79.899 Other long term (current) drug therapy
CPT/HCPCS: 96372; 99282; A9270-GY; J2060

== ENCOUNTER 2019-11-12 10:04 | Observation (INO) ==
[2019-11-12 11:06] VITALS: BP 153/84
[2019-11-12] MEDS ORDERED: ceFAZolin 2 GM PREMIX 2 GM/50 ML BAG ONE (11:26)
[2019-11-12] MEDS ORDERED: fentaNYL 250 mcg/5 ml 50 MCG/ML 5 ml VIAL (250 MCG) ONE (12:00)
[2019-11-12] MEDS ORDERED: Midazolam 5 mg/5 ml VIAL 1 mg/ml 5 ml VIAL (5 mg) ONE (12:00)
== END 2019-11-12 12:00 | disposition left against medical advice (07) ==
LOC: MED → INTOOBSV 10:04 → AA 10:04
PROVIDERS: ADMIT Orthopaedic Surgery; ATTEND Orthopaedic Surgery

== ENCOUNTER 2020-11-19 16:42 | Inpatient (IN) ==
[2020-11-19] MEDS ORDERED: diPHENhydraMINE IV 50 MG/ML 1 ml VIAL (BENADRYL) IM ONE (17:08)
[2020-11-19] MEDS ORDERED: Haloperidol 5 mg/ml SDV IV/IM 5 MG/ML AMP IM ONE (17:08)
[2020-11-19] MEDS ORDERED: LORazepam 2 mg VIAL 1 ml IM ONE (17:08)
[2020-11-19] MEDS ORDERED: LORazepam 2 mg VIAL 1 ml ONE (17:10)
[2020-11-19 18:14] LABS: ABS Basophils 0.1 10^3/ul (0-0.2); ABS Eosinophils 0.1 10^3/ul (0-0.6); ABS Neutrophils 8.5 10^3/ul (1.5-7.7); Eosinophil % 0.8 %; Hematocrit 41 % (42-52); Hemoglobin 13.4 g/dL (14.0-18.0); Lymphocyte % 17.3 %; Mean Corpuscular HGB Conc 33 g/dL (31-36); Mean Corpuscular Hemoglobin 30 pg (27-31); Mean Corpuscular Volume 91 fL (80-94); Mean Platelet Volume 9.3 fL (7.4-10.4); Platelet Count 296 10^3/uL (150-450); Red Blood Count 4.53 10^6 /uL (4.18-5.48); Red Cell Distribution Width 14 % (10-15); White Blood Count 11.7 10^3/uL (3.5-10.8)
[2020-11-19] MEDS ORDERED: Piperacillin/Tazobac ADVAN 3.375 GM in NS 0.9% 100 ml BAG 100 ML IV ONE (18:24)
[2020-11-19] MEDS ORDERED: Vancomycin 1,000 MG in NS 0.9% 250 ml 250 ML IVPB ONE (18:24)
[2020-11-19 18:33] LABS: ALT 11 U/L (7-52); AST 19 U/L (13-39); Albumin 3.8 g/dL (3.2-5.2); Albumin/Globulin Ratio 1.1 (1-3); Alkaline Phosphatase 88 U/L (35-149); Anion Gap 3 mmol/L (2-11); Blood Urea Nitrogen 9 mg/dL (6-24); C Reactive Protein 16.64 mg/L (<8.01); CO2 Carbon Dioxide 32 mmol/L (22-32); Calcium 8.7 mg/dL (8.6-10.3); Chloride 102 mmol/L (101-111); Creatine Kinase 302 U/L (10-223); EGFR Non-African American 99.1 (>60); Globulin 3.6 g/dL (2-4); Glucose 97 mg/dL (70-100); Potassium 3.5 mmol/L (3.5-5.0); Sodium 137 mmol/L (135-145); Total Protein 7.4 g/dL (6.4-8.9)
[2020-11-19 19:16] LABS: Acetaminophen < 15 mcg/mL; Alcohol, S < 13 mg/dL (<10); Salicylate < 2.50 mg/dL (<30)
[2020-11-19 19:29] LABS: TSH Ultra Thyroid Stim Horm 1.29 mcIU/mL (0.34-5.60)
[2020-11-20] MEDS ORDERED: Haloperidol 5 mg/ml SDV IV/IM 5 MG/ML AMP IV SLOW PU ONE (02:53)
[2020-11-20] MEDS ORDERED: LORazepam 2 mg VIAL 1 ml IV PUSH ONE (02:58)
[2020-11-20] MEDS ORDERED: Lorazepam PYXIS KEY PRN ×2 (02:58→22:44)
[2020-11-20] MEDS ORDERED: Vancomycin per Pharmacy 1 EA NOTE FOLLOW UP SCH ×2 (04:00→12:00)
[2020-11-20] MEDS ORDERED: Cefepime 2 GM IV - ED ONCE IV ONE (04:00)
[2020-11-20 04:14] LABS: Urine Appearance Cloudy; Urine Bilirubin Negative (Negative); Urine Blood Negative (Negative); Urine Color Amber; Urine Glucose Negative (Negative); Urine Ketones Negative (Negative); Urine Nitrite Negative (Negative); Urine Protein 1+(30 mg/dL) (Negative); Urine Specific Gravity 1.032 (1.002-1.030); Urine Urobilinogen Negative (Negative)
[2020-11-20] MEDS ORDERED: Heparin 5000 UNITS/ML 1 mL VIAL IV ONE (04:14)
[2020-11-20] MEDS ORDERED: Thiamine 100 MG/ML 2 ml VIAL (200 mg) IM ONE (04:14)
[2020-11-20 04:23] LABS: Urine Bacteria 1+ (Absent); Urine Red Blood Cell Trace(0-2/hpf) (Absent); Urine White Blood Cell Trace(0-5/hpf) (Absent)
[2020-11-20 04:29] LABS: Rapid COVID-19 Molecular Undetected (Undetected)
[2020-11-20] MEDS ORDERED: Vancomycin 1,250 MG in NS 0.9% 250 ml 250 ML IVPB ONE ×2 (04:30→11:17)
[2020-11-20 04:33] LABS: Urine Benzodiazepine Screen None Detected (None Detect); Urine Cannabinoids Screen None Detected (None Detect); Urine Opiates Screen None Detected (None Detect)
[2020-11-20] MEDS ORDERED: Cefepime 2 GM in Dextrose 2 GM/50 ML BAG IV ONE (05:00)
[2020-11-20] MEDS: Dexmedetomidine 1,000 MCG in NS 0.9% 250 ml 240 ML IV SCH ×2 (05:13→17:21)
[2020-11-20] MEDS: Multivitamins/Minerals TAB PO SCH ×2 (05:42→11:46)
[2020-11-20] MEDS ORDERED: Zosyn per Pharmacy NOTE FOLLOW UP SCH (12:00)
[2020-11-20 12:38] LABS: Albumin 3.3 g/dL (3.2-5.2); Calcium 8.2 mg/dL (8.6-10.3); Direct Bilirubin 0.1 mg/dL (0.03-0.18); Indirect Bilirubin 0.7 mg/dL (0.3-1.0); Magnesium 2.4 mg/dL (1.9-2.7); Potassium 4.4 mmol/L (3.5-5.0); Total Bilirubin 0.8 mg/dL (0.2-1.0)
[2020-11-20 12:44] LABS: EGFR African American 164.3 (>60); EGFR Non-African American 135.8 (>60); Globulin 3.4 g/dL (2-4); HDL Cholesterol 27.8 mg/dL; Total Protein 6.7 g/dL (6.4-8.9)
[2020-11-20 12:45] LABS: Hematocrit 39 % (42-52); Hemoglobin 13.2 g/dL (14.0-18.0); Mean Corpuscular HGB Conc 34 g/dL (31-36); Mean Corpuscular Hemoglobin 30 pg (27-31); Mean Corpuscular Volume 91 fL (80-94); Red Blood Count 4.34 10^6 /uL (4.18-5.48); Red Cell Distribution Width 14 % (10-15); White Blood Count 9.2 10^3/uL (3.5-10.8)
[2020-11-20] MEDS ORDERED: Buffered Lidocaine 1% SYRIN 1 ml INTRADERM ONE (13:00)
[2020-11-20 13:12] LABS: Mean Platelet Volume 9.9 fL (7.4-10.4); Platelet Count 206 10^3/uL (150-450)
[2020-11-20 15:19] LABS: C Reactive Protein 25.7 mg/L (<8.01)
[2020-11-20] MEDS ORDERED: Cefepime 2 GM in Dextrose 2 GM/50 ML BAG IV SCH ×2 (16:00→18:30)
[2020-11-20 17:09] LABS: Urine Appearance Cloudy; Urine Bilirubin Negative (Negative); Urine Blood 2+ (Negative); Urine Color Amber; Urine Glucose Negative (Negative); Urine Ketones Negative (Negative); Urine Nitrite Negative (Negative); Urine Protein 1+(30 mg/dL) (Negative); Urine Specific Gravity 1.034 (1.002-1.030); Urine Urobilinogen Negative (Negative)
[2020-11-20 17:12] LABS: Urine Bacteria Absent (Absent); Urine Red Blood Cell 3+(>10/hpf) (Absent); Urine Sperm Present (Absent); Urine Squamous Epithelial Cell Present (Absent); Urine White Blood Cell 1+(6-10/hpf) (Absent)
[2020-11-20] MEDS ORDERED: Acetaminophen IV 1 GM/100ML 100 ML IV PRN (17:18)
[2020-11-20] MEDS ORDERED: Piperacillin/Tazobac ADVAN 3.375 GM in NS 0.9% 100 ml BAG 100 ML IV ONE (18:00)
[2020-11-20] MEDS ORDERED: ZOSYN 3.375 GM Q8H per EXTENDED INFUSION IV SCH (22:15)
[2020-11-20] MEDS: Buprenorp/Nalox 8-2 MG FILM SL FILM SCH ×2 (22:40→22:43)
[2020-11-20] MEDS: Vancomycin 1000 MG in NS 0.9% 250 ML IVPB SCH (22:40)
[2020-11-21] MEDS: Lactated Ringers 1000 ml BAG 500 ML IV SCH ×2 (01:35→13:30)
[2020-11-21] MEDS: Saline FLUSH-CENTRAL 10 ML SYRINGE CENT\\PICC SCH ×3 (02:35→20:41)
[2020-11-21] MEDS ORDERED: Lorazepam PYXIS KEY PRN ×3 (06:08→21:14)
[2020-11-21] MEDS ORDERED: LORazepam 2 mg VIAL 1 ml IV PUSH ONE ×3 (06:09→21:14)
[2020-11-21] MEDS: Vancomycin 1000 MG in NS 0.9% 250 ML IVPB SCH ×3 (06:25→20:41)
[2020-11-21 07:10] LABS: ABS Eosinophils 0.2 10^3/ul (0-0.6); ABS Lymphocytes 1.2 10^3/ul (1.0-4.8); ABS Monocytes 0.4 10^3/ul (0-0.8); ABS Neutrophils 4.8 10^3/ul (1.5-7.7); Eosinophil % 3.3 %; Hematocrit 38 % (42-52); Hemoglobin 12.6 g/dL (14.0-18.0); Lymphocyte % 18.2 %; Mean Corpuscular HGB Conc 33 g/dL (31-36); Mean Corpuscular Hemoglobin 30 pg (27-31); Mean Corpuscular Volume 91 fL (80-94); Mean Platelet Volume 9.6 fL (7.4-10.4); Platelet Count 229 10^3/uL (150-450); Red Blood Count 4.14 10^6 /uL (4.18-5.48); Red Cell Distribution Width 13 % (10-15); White Blood Count 6.7 10^3/uL (3.5-10.8)
[2020-11-21 07:25] LABS: C Reactive Protein 32.86 mg/L (<8.01)
[2020-11-21] MEDS: Dexmedetomidine 1,000 MCG in NS 0.9% 250 ml 240 ML IV SCH ×2 (07:45→17:02)
[2020-11-21] MEDS: ZOSYN 3.375 GM Q8H per EXTENDED INFUSION IV SCH ×2 (10:26→18:15)
[2020-11-21] MEDS: Buprenorp/Nalox 8-2 MG FILM SL FILM SCH ×2 (10:29→14:25)
[2020-11-21] MEDS: Multivitamins/Minerals TAB PO SCH (10:29)
[2020-11-21] MEDS ORDERED: LORazepam 2 mg VIAL 1 ml ONE (16:48)
[2020-11-21] MEDS ORDERED: NS 0.9% 100 ml BAG 100 ML ONE (20:39)
[2020-11-21] MEDS ORDERED: NS 0.9% 250 ml 250 ML ONE (20:39)
[2020-11-21] MEDS: Enoxaparin 40 MG/0.4 ML SYR SUBCUT SCH (20:58)
[2020-11-21] MEDS: LORazepam 2 mg VIAL 1 ml IV PUSH PRN (21:12)
[2020-11-22] MEDS: Buprenorp/Nalox 8-2 MG FILM SL FILM SCH ×2 (00:19→12:21)
[2020-11-22] MEDS: ZOSYN 3.375 GM Q8H per EXTENDED INFUSION IV SCH ×3 (01:50→17:12)
[2020-11-22] MEDS: LORazepam 2 mg VIAL 1 ml IV PUSH PRN ×2 (02:54→06:26)
[2020-11-22] MEDS ORDERED: Vancomycin Trough Check NOTE FOLLOW UP ONE (05:30)
[2020-11-22] MEDS: Vancomycin 1000 MG in NS 0.9% 250 ML IVPB SCH ×3 (05:51→20:59)
[2020-11-22 06:50] LABS: Vancomycin Trough 14.5 mcg/mL
[2020-11-22] MEDS ORDERED: LORazepam 2 mg VIAL 1 ml ONE ×2 (07:09→07:10)
[2020-11-22] MEDS ORDERED: Lorazepam PYXIS KEY ONE (07:10)
[2020-11-22] MEDS ORDERED: Haloperidol 5 mg/ml SDV IV/IM 5 MG/ML AMP ONE (07:11)
[2020-11-22] MEDS ORDERED: diPHENhydraMINE IV 50 MG/ML 1 ml VIAL (BENADRYL) ONE (07:11)
[2020-11-22] MEDS ORDERED: Rocuronium 50 mg VIAL 10 mg/ml 5 ml VIAL (50 mg) ONE (09:17)
[2020-11-22] MEDS ORDERED: Succinylcholine 200 mg VIAL 20 mg/ml 10 ml VIAL (200 mg) ONE (09:17)
[2020-11-22] MEDS ORDERED: Propofol 10 mg/ml 100 ML BTL 100 ML ONE (09:30)
[2020-11-22] MEDS: Saline FLUSH-CENTRAL 10 ML SYRINGE CENT\\PICC SCH ×2 (10:52→20:59)
[2020-11-22] MEDS: Chlorhexidine MOUTHWASH 0.12% 15 ML UDC TOPICAL SCH ×3 (11:18→21:58)
[2020-11-22] MEDS: Multivitamins/Minerals TAB PO SCH (11:19)
[2020-11-22] MEDS: Pantoprazole VIAL 40 MG VIAL IV SCH (11:31)
[2020-11-22] MEDS ORDERED: fentaNYL 100 mcg/2 ml 50 MCG/ML VIAL ONE (13:28)
[2020-11-22] MEDS: fentaNYL 100 mcg/2 ml 50 MCG/ML VIAL IV SLOW PU PRN ×2 (13:30→23:50)
[2020-11-22 14:16] LABS: Potassium 4.3 mmol/L (3.5-5.0)
[2020-11-22 14:21] LABS: EGFR African American 124.9 (>60); EGFR Non-African American 103.2 (>60); Phosphorus 3.9 mg/dL (2.5-5.0)
[2020-11-22] MEDS: Propofol 10 mg/ml 100 ML BTL 100 ML IV SCH (14:31)
[2020-11-22] MEDS: [UNRECOGNIZED DRUG - OTHER] PO SCH ×3 (14:43→23:51)
[2020-11-22 16:13] LABS: Hematocrit 36 % (42-52); Mean Corpuscular HGB Conc 33 g/dL (31-36); Mean Corpuscular Hemoglobin 30 pg (27-31); Mean Corpuscular Volume 91 fL (80-94); Platelet Count 237 10^3/uL (150-450); Red Blood Count 3.95 10^6 /uL (4.18-5.48); Red Cell Distribution Width 14 % (10-15); White Blood Count 5.8 10^3/uL (3.5-10.8)
[2020-11-22] MEDS: Enoxaparin 40 MG/0.4 ML SYR SUBCUT SCH (20:59)
[2020-11-23] MEDS: Chlorhexidine MOUTHWASH 0.12% 15 ML UDC TOPICAL SCH ×6 (00:37→20:17)
[2020-11-23] MEDS: ZOSYN 3.375 GM Q8H per EXTENDED INFUSION IV SCH ×3 (01:31→18:04)
[2020-11-23] MEDS: Propofol 10 mg/ml 100 ML BTL 100 ML IV SCH ×5 (04:17→21:01)
[2020-11-23] MEDS: Vancomycin 1000 MG in NS 0.9% 250 ML IVPB SCH ×3 (06:38→21:02)
[2020-11-23 07:54] LABS: ABS Basophils 0.1 10^3/ul (0-0.2); ABS Eosinophils 0.1 10^3/ul (0-0.6); ABS Lymphocytes 1.2 10^3/ul (1.0-4.8); ABS Monocytes 0.8 10^3/ul (0-0.8); ABS Neutrophils 5.9 10^3/ul (1.5-7.7); Eosinophil % 1.9 %; Hematocrit 37 % (42-52); Hemoglobin 12.5 g/dL (14.0-18.0); Lymphocyte % 14.7 %; Mean Corpuscular HGB Conc 34 g/dL (31-36); Mean Corpuscular Hemoglobin 31 pg (27-31); Mean Corpuscular Volume 91 fL (80-94); Mean Platelet Volume 9.7 fL (7.4-10.4); Platelet Count 237 10^3/uL (150-450); Red Blood Count 4.11 10^6 /uL (4.18-5.48); Red Cell Distribution Width 14 % (10-15)
[2020-11-23 08:09] LABS: C Reactive Protein 14.66 mg/L (<8.01); Calcium 8.3 mg/dL (8.6-10.3); EGFR African American 108.5 (>60); EGFR Non-African American 89.7 (>60); Phosphorus 4.7 mg/dL (2.5-5.0); Potassium 3.7 mmol/L (3.5-5.0)
[2020-11-23] MEDS: fentaNYL 100 mcg/2 ml 50 MCG/ML VIAL IV SLOW PU PRN ×2 (08:09→13:41)
[2020-11-23] MEDS: [UNRECOGNIZED DRUG - OTHER] PO SCH ×2 (08:20→21:01)
[2020-11-23] MEDS: Multivitamins/Minerals TAB PO SCH (08:21)
[2020-11-23] MEDS: Saline FLUSH-CENTRAL 10 ML SYRINGE CENT\\PICC SCH ×2 (09:44→21:01)
[2020-11-23] MEDS: Pantoprazole VIAL 40 MG VIAL IV SCH (11:23)
[2020-11-23] MEDS ORDERED: Potassium Chlor 20 meq TAB.ER ONE (12:08)
[2020-11-23] MEDS ORDERED: Gadoteridol (CONTRAST) 279.3 MG/ML 10 ML IV ONE (16:35)
[2020-11-23] MEDS: Enoxaparin 40 MG/0.4 ML SYR SUBCUT SCH (21:01)
[2020-11-24] MEDS: Chlorhexidine MOUTHWASH 0.12% 15 ML UDC TOPICAL SCH ×6 (00:29→20:56)
[2020-11-24] MEDS: ZOSYN 3.375 GM Q8H per EXTENDED INFUSION IV SCH ×3 (00:29→17:27)
[2020-11-24] MEDS: Propofol 10 mg/ml 100 ML BTL 100 ML IV SCH ×7 (00:41→22:37)
[2020-11-24] MEDS: Vancomycin 1000 MG in NS 0.9% 250 ML IVPB SCH ×3 (05:05→20:58)
[2020-11-24 06:11] LABS: ABS Eosinophils 0.2 10^3/ul (0-0.6); ABS Lymphocytes 1.4 10^3/ul (1.0-4.8); ABS Monocytes 0.8 10^3/ul (0-0.8); Eosinophil % 3.3 %; Hematocrit 34 % (42-52); Hemoglobin 11.5 g/dL (14.0-18.0); Lymphocyte % 22.4 %; Mean Corpuscular HGB Conc 33 g/dL (31-36); Mean Corpuscular Hemoglobin 30 pg (27-31); Mean Corpuscular Volume 91 fL (80-94); Mean Platelet Volume 9.8 fL (7.4-10.4); Nucleated Red Blood Cells % 0.1; Platelet Count 226 10^3/uL (150-450); Red Blood Count 3.79 10^6 /uL (4.18-5.48); Red Cell Distribution Width 14 % (10-15); White Blood Count 6.5 10^3/uL (3.5-10.8)
[2020-11-24 06:29] LABS: EGFR Non-African American 82.7 (>60); Magnesium 2.3 mg/dL (1.9-2.7); Phosphorus 5.1 mg/dL (2.5-5.0); Potassium 3.8 mmol/L (3.5-5.0)
[2020-11-24] MEDS: [UNRECOGNIZED DRUG - OTHER] PO SCH (08:26)
[2020-11-24] MEDS: Multivitamins/Minerals TAB PO SCH (08:26)
[2020-11-24] MEDS: Saline FLUSH-CENTRAL 10 ML SYRINGE CENT\\PICC SCH ×2 (08:27→21:19)
[2020-11-24] MEDS: Pantoprazole VIAL 40 MG VIAL IV SCH (11:36)
[2020-11-24] MEDS: Enoxaparin 40 MG/0.4 ML SYR SUBCUT SCH (20:58)
[2020-11-24] MEDS ORDERED: Propofol 10 MG/ML 20 ML BTL ONE (22:35)
[2020-11-25] MEDS: Chlorhexidine MOUTHWASH 0.12% 15 ML UDC TOPICAL SCH ×6 (00:17→19:51)
[2020-11-25] MEDS: ZOSYN 3.375 GM Q8H per EXTENDED INFUSION IV SCH ×2 (02:02→10:09)
[2020-11-25 02:13] LABS: Calcium 8.1 mg/dL (8.6-10.3); EGFR African American 108.5 (>60); EGFR Non-African American 89.7 (>60); Magnesium 2.3 mg/dL (1.9-2.7); Potassium 3.7 mmol/L (3.5-5.0)
[2020-11-25 02:29] LABS: TSH Ultra Thyroid Stim Horm 1.35 mcIU/mL (0.34-5.60)
[2020-11-25] MEDS: fentaNYL 100 mcg/2 ml 50 MCG/ML VIAL IV SLOW PU PRN (02:52)
[2020-11-25] MEDS: Propofol 10 mg/ml 100 ML BTL 100 ML IV SCH ×3 (03:57→12:48)
[2020-11-25] MEDS ORDERED: Vancomycin Trough Check NOTE FOLLOW UP ONE (05:30)
[2020-11-25 06:49] LABS: ABS Eosinophils 0.3 10^3/ul (0-0.6); ABS Lymphocytes 1.3 10^3/ul (1.0-4.8); ABS Monocytes 0.5 10^3/ul (0-0.8); ABS Neutrophils 3.6 10^3/ul (1.5-7.7); Eosinophil % 5.4 %; Hematocrit 37 % (42-52); Hemoglobin 12.2 g/dL (14.0-18.0); Lymphocyte % 22.8 %; Mean Corpuscular HGB Conc 33 g/dL (31-36); Mean Corpuscular Hemoglobin 30 pg (27-31); Mean Corpuscular Volume 91 fL (80-94); Mean Platelet Volume 9.6 fL (7.4-10.4); Platelet Count 207 10^3/uL (150-450); Red Blood Count 4.01 10^6 /uL (4.18-5.48); Red Cell Distribution Width 14 % (10-15); White Blood Count 5.7 10^3/uL (3.5-10.8)
[2020-11-25 07:05] LABS: Calcium 8.1 mg/dL (8.6-10.3); EGFR Non-African American 82.7 (>60); Magnesium 2.3 mg/dL (1.9-2.7); Phosphorus 4.1 mg/dL (2.5-5.0); Potassium 3.9 mmol/L (3.5-5.0)
[2020-11-25] MEDS: Vancomycin 1000 MG in NS 0.9% 250 ML IVPB SCH (08:59)
[2020-11-25] MEDS: Multivitamins/Minerals TAB PO SCH (10:09)
[2020-11-25] MEDS: Dexmedetomidine 1,000 MCG in NS 0.9% 250 ml 240 ML IV SCH ×2 (11:03→21:43)
[2020-11-25] MEDS: Saline FLUSH-CENTRAL 10 ML SYRINGE CENT\\PICC SCH ×2 (11:03→22:52)
[2020-11-25] MEDS: Pantoprazole VIAL 40 MG VIAL IV SCH (11:23)
[2020-11-25] MEDS: cefTRIAXone 2 GM ADDV.VIAL 2 GM in NS 0.9% 100 ml BAG 100 ML IV SCH (12:58)
[2020-11-25] MEDS: Enoxaparin 40 MG/0.4 ML SYR SUBCUT SCH (19:51)
[2020-11-26] MEDS: Chlorhexidine MOUTHWASH 0.12% 15 ML UDC TOPICAL SCH ×7 (01:07→22:04)
[2020-11-26 05:20] LABS: ABS Eosinophils 0.4 10^3/ul (0-0.6); ABS Monocytes 0.7 10^3/ul (0-0.8); ABS Neutrophils 4.4 10^3/ul (1.5-7.7); Eosinophil % 5.5 %; Hematocrit 35 % (42-52); Hemoglobin 11.7 g/dL (14.0-18.0); Lymphocyte % 15.6 %; Mean Corpuscular HGB Conc 34 g/dL (31-36); Mean Corpuscular Hemoglobin 30 pg (27-31); Mean Corpuscular Volume 91 fL (80-94); Mean Platelet Volume 9.9 fL (7.4-10.4); Platelet Count 218 10^3/uL (150-450); Red Blood Count 3.85 10^6 /uL (4.18-5.48); Red Cell Distribution Width 14 % (10-15); White Blood Count 6.6 10^3/uL (3.5-10.8)
[2020-11-26 05:31] LABS: Calcium 8.3 mg/dL (8.6-10.3); EGFR Non-African American 99.1 (>60); Magnesium 1.9 mg/dL (1.9-2.7); Phosphorus 4.3 mg/dL (2.5-5.0); Potassium 4.1 mmol/L (3.5-5.0)
[2020-11-26] MEDS: Vancomycin 1000 MG in NS 0.9% 250 ML IVPB SCH ×2 (06:13→18:04)
[2020-11-26] MEDS: Dexmedetomidine 1,000 MCG in NS 0.9% 250 ml 240 ML IV SCH ×3 (06:46→22:07)
[2020-11-26] MEDS ORDERED: LORazepam 2 mg VIAL 1 ml IV PUSH PRN (07:48)
[2020-11-26] MEDS ORDERED: Propofol 10 mg/ml 100 ML BTL 100 ML IV SCH (08:00)
[2020-11-26] MEDS: Saline FLUSH-CENTRAL 10 ML SYRINGE CENT\\PICC SCH ×2 (08:57→21:34)
[2020-11-26] MEDS: Multivitamins/Minerals TAB PO SCH (08:57)
[2020-11-26] MEDS: Pantoprazole VIAL 40 MG VIAL IV SCH (11:40)
[2020-11-26] MEDS: cefTRIAXone 2 GM ADDV.VIAL 2 GM in NS 0.9% 100 ml BAG 100 ML IV SCH (12:03)
[2020-11-26] MEDS: fentaNYL 100 mcg/2 ml 50 MCG/ML VIAL IV SLOW PU PRN ×5 (12:07→22:32)
[2020-11-26] MEDS: Enoxaparin 40 MG/0.4 ML SYR SUBCUT SCH (22:04)
[2020-11-27] MEDS: fentaNYL 100 mcg/2 ml 50 MCG/ML VIAL IV SLOW PU PRN ×5 (00:55→20:16)
[2020-11-27] MEDS: Chlorhexidine MOUTHWASH 0.12% 15 ML UDC TOPICAL SCH ×2 (04:30→11:49)
[2020-11-27 05:27] LABS: Hematocrit 33 % (42-52); Hemoglobin 11.1 g/dL (14.0-18.0); Mean Corpuscular HGB Conc 34 g/dL (31-36); Mean Corpuscular Hemoglobin 30 pg (27-31); Mean Corpuscular Volume 90 fL (80-94); Mean Platelet Volume 9.9 fL (7.4-10.4); Platelet Count 201 10^3/uL (150-450); Red Blood Count 3.68 10^6 /uL (4.18-5.48); Red Cell Distribution Width 14 % (10-15); White Blood Count 6.4 10^3/uL (3.5-10.8)
[2020-11-27 05:49] LABS: Calcium 8.2 mg/dL (8.6-10.3); EGFR African American 130.1 (>60); EGFR Non-African American 107.6 (>60); Potassium 4.1 mmol/L (3.5-5.0)
[2020-11-27] MEDS: Dexmedetomidine 1,000 MCG in NS 0.9% 250 ml 240 ML IV SCH ×2 (06:15→17:25)
[2020-11-27] MEDS: Vancomycin 1000 MG in NS 0.9% 250 ML IVPB SCH ×2 (06:27→18:20)
[2020-11-27] MEDS: Multivitamins/Minerals TAB PO SCH (08:07)
[2020-11-27] MEDS ORDERED: fentaNYL 100 mcg/2 ml 50 MCG/ML VIAL IV SLOW PU PRN (08:24)
[2020-11-27 08:45] LABS: Magnesium 1.8 mg/dL (1.9-2.7); Phosphorus 4.4 mg/dL (2.5-5.0)
[2020-11-27 09:45] LABS: C Reactive Protein 75.83 mg/L (<8.01)
[2020-11-27] MEDS: Saline FLUSH-CENTRAL 10 ML SYRINGE CENT\\PICC SCH ×2 (10:54→19:50)
[2020-11-27] MEDS: Pantoprazole VIAL 40 MG VIAL IV SCH (12:27)
[2020-11-27] MEDS: cefTRIAXone 2 GM ADDV.VIAL 2 GM in NS 0.9% 100 ml BAG 100 ML IV SCH (12:28)
[2020-11-27] MEDS ORDERED: Acetaminophen IV 1 GM/100ML 100 ML IV PRN (15:34)
[2020-11-27] MEDS ORDERED: fentaNYL 100 mcg/2 ml 50 MCG/ML VIAL ONE (17:00)
[2020-11-27] MEDS ORDERED: LORazepam 2 mg VIAL 1 ml ONE (17:02)
[2020-11-27] MEDS: LORazepam 2 mg VIAL 1 ml IV PUSH PRN ×2 (17:05→20:17)
[2020-11-27] MEDS ORDERED: Vancomycin Trough Check NOTE FOLLOW UP ONE (18:00)
[2020-11-27] MEDS ORDERED: Magnesium Sulfate 2 gm BAG 2 GM/50 ML BAG IVPB ONE (18:15)
[2020-11-27] MEDS: Enoxaparin 40 MG/0.4 ML SYR SUBCUT SCH (20:20)
[2020-11-28] MEDS: LORazepam 2 mg VIAL 1 ml IV PUSH PRN ×2 (00:59→05:18)
[2020-11-28] MEDS: Dexmedetomidine 1,000 MCG in NS 0.9% 250 ml 240 ML IV SCH ×3 (01:11→21:27)
[2020-11-28 02:36] LABS: Calcium 8.9 mg/dL (8.6-10.3); EGFR African American 128.3 (>60); EGFR Non-African American 106.1 (>60); Urine Appearance Clear; Urine Bilirubin Negative (Negative); Urine Blood 3+ (Negative); Urine Color Straw; Urine Creatinine Concentration 19.73 mg/dL; Urine Glucose Negative (Negative); Urine Ketones Negative (Negative); Urine Nitrite Negative (Negative); Urine Protein Negative (Negative); Urine Specific Gravity 1.004 (1.002-1.030); Urine Urobilinogen Negative (Negative)
[2020-11-28 02:42] LABS: Urine Bacteria Absent (Absent); Urine Red Blood Cell 2+(6-10/hpf) (Absent); Urine White Blood Cell Absent (Absent)
[2020-11-28] MEDS: fentaNYL 100 mcg/2 ml 50 MCG/ML VIAL IV SLOW PU PRN ×2 (04:00→20:05)
[2020-11-28] MEDS ORDERED: Vancomycin Trough Check NOTE FOLLOW UP ONE (05:30)
[2020-11-28] MEDS ORDERED: Haloperidol 5 mg/ml SDV IV/IM 5 MG/ML AMP ONE (06:01)
[2020-11-28] MEDS: Haloperidol 5 mg/ml SDV IV/IM 5 MG/ML AMP IV SLOW PU PRN ×2 (06:07→13:04)
[2020-11-28 06:11] LABS: Hematocrit 35 % (42-52); Hemoglobin 11.4 g/dL (14.0-18.0); Mean Corpuscular HGB Conc 33 g/dL (31-36); Mean Corpuscular Hemoglobin 30 pg (27-31); Mean Corpuscular Volume 90 fL (80-94); Mean Platelet Volume 9.8 fL (7.4-10.4); Platelet Count 202 10^3/uL (150-450); Red Blood Count 3.82 10^6 /uL (4.18-5.48); Red Cell Distribution Width 14 % (10-15)
[2020-11-28 06:25] LABS: EGFR African American 133.9 (>60); EGFR Non-African American 110.7 (>60); Phosphorus 4.6 mg/dL (2.5-5.0); Potassium 3.7 mmol/L (3.5-5.0)
[2020-11-28] MEDS ORDERED: KCL 20 MEQ/100 ML IVPREMIX 20 MEQ/100 ML BAG IV ONE (07:37)
[2020-11-28] MEDS: Vancomycin 1000 MG in NS 0.9% 250 ML IVPB SCH (08:19)
[2020-11-28] MEDS: Saline FLUSH-CENTRAL 10 ML SYRINGE CENT\\PICC SCH ×2 (08:48→20:07)
[2020-11-28] MEDS: Multivitamins/Minerals TAB PO SCH (08:48)
[2020-11-28] MEDS: Pantoprazole VIAL 40 MG VIAL IV SCH (11:07)
[2020-11-28] MEDS: cefTRIAXone 2 GM ADDV.VIAL 2 GM in NS 0.9% 100 ml BAG 100 ML IV SCH (12:59)
[2020-11-28] MEDS: Vancomycin 1,250 MG in NS 0.9% 250 ml 250 ML IVPB SCH (17:48)
[2020-11-28] MEDS: Enoxaparin 40 MG/0.4 ML SYR SUBCUT SCH (20:07)
[2020-11-29 05:17] LABS: Hematocrit 35 % (42-52); Hemoglobin 11.8 g/dL (14.0-18.0); Mean Corpuscular HGB Conc 34 g/dL (31-36); Mean Corpuscular Hemoglobin 30 pg (27-31); Mean Corpuscular Volume 88 fL (80-94); Mean Platelet Volume 9.8 fL (7.4-10.4); Platelet Count 209 10^3/uL (150-450); Red Blood Count 3.95 10^6 /uL (4.18-5.48); Red Cell Distribution Width 14 % (10-15); White Blood Count 6.1 10^3/uL (3.5-10.8)
[2020-11-29 05:32] LABS: Calcium 8.6 mg/dL (8.6-10.3); EGFR African American 133.9 (>60); EGFR Non-African American 110.7 (>60); Potassium 3.7 mmol/L (3.5-5.0)
[2020-11-29] MEDS: Vancomycin 1,250 MG in NS 0.9% 250 ml 250 ML IVPB SCH ×2 (06:45→18:30)
[2020-11-29] MEDS: Dexmedetomidine 1,000 MCG in NS 0.9% 250 ml 240 ML IV SCH (09:16)
[2020-11-29] MEDS: Haloperidol 5 mg/ml SDV IV/IM 5 MG/ML AMP IV SLOW PU PRN (11:08)
[2020-11-29] MEDS: Saline FLUSH-CENTRAL 10 ML SYRINGE CENT\\PICC SCH ×2 (11:08→21:09)
[2020-11-29] MEDS ORDERED: NS 0.9% 100 ml BAG 100 ML ONE (11:59)
[2020-11-29] MEDS: Pantoprazole VIAL 40 MG VIAL IV SCH (12:08)
[2020-11-29] MEDS: cefTRIAXone 2 GM ADDV.VIAL 2 GM in NS 0.9% 100 ml BAG 100 ML IV SCH (12:08)
[2020-11-29] MEDS: Polyethylene Glycol 3350 17 GM PACKET PO SCH (18:19)
[2020-11-29] MEDS: fentaNYL 100 mcg/2 ml 50 MCG/ML VIAL IV SLOW PU PRN ×2 (18:49→23:45)
[2020-11-29] MEDS: Enoxaparin 40 MG/0.4 ML SYR SUBCUT SCH (21:07)
[2020-11-30] MEDS: fentaNYL 100 mcg/2 ml 50 MCG/ML VIAL IV SLOW PU PRN ×2 (04:08→08:23)
[2020-11-30 04:56] LABS: ABS Eosinophils 0.2 10^3/ul (0-0.6); ABS Lymphocytes 1.5 10^3/ul (1.0-4.8); ABS Neutrophils 4.8 10^3/ul (1.5-7.7); Eosinophil % 3.3 %; Hematocrit 37 % (42-52); Hemoglobin 12.4 g/dL (14.0-18.0); Lymphocyte % 19.2 %; Mean Corpuscular HGB Conc 33 g/dL (31-36); Mean Corpuscular Hemoglobin 30 pg (27-31); Mean Corpuscular Volume 90 fL (80-94); Nucleated Red Blood Cells % 0.1; Platelet Count 210 10^3/uL (150-450); Red Blood Count 4.15 10^6 /uL (4.18-5.48); Red Cell Distribution Width 14 % (10-15); White Blood Count 7.6 10^3/uL (3.5-10.8)
[2020-11-30 05:06] LABS: EGFR African American 102.3 (>60); EGFR Non-African American 84.6 (>60); Magnesium 1.9 mg/dL (1.9-2.7); Phosphorus 4.9 mg/dL (2.5-5.0); Potassium 3.6 mmol/L (3.5-5.0)
[2020-11-30] MEDS: Vancomycin 1,250 MG in NS 0.9% 250 ml 250 ML IVPB SCH (05:36)
[2020-11-30] MEDS: Polyethylene Glycol 3350 17 GM PACKET PO SCH (07:18)
[2020-11-30] MEDS ORDERED: KCL 20 MEQ/100 ML IVPREMIX 20 MEQ/100 ML BAG IV ONE (07:40)
[2020-11-30] MEDS: Saline FLUSH-CENTRAL 10 ML SYRINGE CENT\\PICC SCH (08:42)
[2020-11-30 10:51] VITALS: BP 155/84
[2020-11-30] MEDS: Pantoprazole VIAL 40 MG VIAL IV SCH (11:57)
[2020-11-30] MEDS ORDERED: COVID-19 VACCINE, AD26(JANSSEN)/PF 0.5 ML IM ONE (13:00)
[2020-11-30] MEDS ORDERED: Amoxicillin/Clavul 500/125 TAB (Augmentin 500 mg tab) PO SCH (17:00)
[2020-12-01] MEDS ORDERED: Vancomycin Trough Check NOTE FOLLOW UP ONE (05:30)
== END 2020-11-30 13:00 | disposition home or self-care (01) | DRG 720 ==
LOC: ED 16:42 → ICU 11-20 11:06
PROVIDERS: ADMIT Internal Medicine; ATTEND Internal Medicine

== ENCOUNTER 2020-12-16 19:34 | Inpatient (IN) ==
[2020-12-16] MEDS ORDERED: Cefepime 2 GM in NS 0.9% 50 ML 50 ML IVPB ONE (20:33)
[2020-12-16] MEDS ORDERED: Lactated Ringers 1000 ml BAG IV.FLUID IV ONE (20:33)
[2020-12-16] MEDS ORDERED: metroNIDAZOLE IV 500 MG/100ML 500 MG/100 ML BAG IVPB ONE (20:33)
[2020-12-16] MEDS ORDERED: Morphine 10 MG/ML VIAL (1 ml) IV ONE (20:34)
[2020-12-16] MEDS ORDERED: Droperidol 5 MG/2 ML 2 ML VIAL IM ONE (20:34)
[2020-12-16] MEDS ORDERED: NS 0.9% 50 ML 50 ML ONE (20:56)
[2020-12-16] MEDS ORDERED: Vancomycin 1,500 MG in NS 0.9% 250 ml 250 ML IVPB ONE (21:00)
[2020-12-16] MEDS ORDERED: Cefepime 2 GM in Dextrose 2 GM/50 ML BAG IV ONE (21:01)
[2020-12-16 22:53] LABS: ABS Basophils 0.1 10^3/ul (0-0.2); ABS Eosinophils 0.3 10^3/ul (0-0.6); ABS Lymphocytes 1.7 10^3/ul (1.0-4.8); ABS Monocytes 0.7 10^3/ul (0-0.8); ABS Neutrophils 5.3 10^3/ul (1.5-7.7); Hematocrit 35 % (42-52); Hemoglobin 11.5 g/dL (14.0-18.0); Lymphocyte % 21.1 %; Mean Corpuscular HGB Conc 33 g/dL (31-36); Mean Corpuscular Hemoglobin 29 pg (27-31); Mean Corpuscular Volume 88 fL (80-94); Mean Platelet Volume 9.1 fL (7.4-10.4); Platelet Count 367 10^3/uL (150-450); Red Blood Count 3.92 10^6 /uL (4.18-5.48); Red Cell Distribution Width 14 % (10-15)
[2020-12-16 23:06] LABS: INR 1.25 (0.86-1.15)
[2020-12-16 23:11] LABS: Albumin 3.3 g/dL (3.2-5.2); Albumin/Globulin Ratio 0.9 (1-3); C Reactive Protein 93.2 mg/L (<8.01); Calcium 8.6 mg/dL (8.6-10.3); EGFR African American 144.2 (>60); EGFR Non-African American 119.2 (>60); Globulin 3.6 g/dL (2-4); Potassium 3.7 mmol/L (3.5-5.0); Total Bilirubin 0.2 mg/dL (0.2-1.0); Total Protein 6.9 g/dL (6.4-8.9)
[2020-12-17] MEDS ORDERED: Piperacillin/Tazobac ADVAN 3.375 GM in NS 0.9% 100 ml BAG 100 ML IV ONE ×2 (00:21→06:00)
[2020-12-17] MEDS ORDERED: Zosyn per Pharmacy NOTE FOLLOW UP SCH (01:00)
[2020-12-17] MEDS ORDERED: Vancomycin per Pharmacy 1 EA NOTE FOLLOW UP SCH (01:00)
[2020-12-17] MEDS: Enoxaparin 40 MG/0.4 ML SYR SUBCUT SCH (02:46)
[2020-12-17 04:04] LABS: Urine Benzodiazepine Screen None Detected (None Detect); Urine Cannabinoids Screen None Detected (None Detect); Urine Opiates Screen Presumptive Positive (None Detect)
[2020-12-17] MEDS ORDERED: Gadoteridol (CONTRAST) 279.3 MG/ML 10 ML IV ONE (07:50)
[2020-12-17] MEDS ORDERED: Gadoteridol (CONTRAST) 279.3 MG/ML 10 ML IV SCH (08:00)
[2020-12-17] MEDS ORDERED: ZOSYN 3.375 GM Q8H per EXTENDED INFUSION IV SCH (10:30)
[2020-12-17] MEDS: Vancomycin 1000 MG in NS 0.9% 250 ML IVPB SCH ×2 (11:01→18:26)
[2020-12-17] MEDS ORDERED: Potassium Chloride LIQUID 20 MEQ/15 ML LIQUID PO ONE (11:05)
[2020-12-17] MEDS ORDERED: Lorazepam PYXIS KEY PRN (16:35)
[2020-12-17] MEDS: Nicotine PATCH 21 MG/24 HR PATCH TRANSDERM SCH (16:42)
[2020-12-18] MEDS: Vancomycin 1000 MG in NS 0.9% 250 ML IVPB SCH ×2 (00:15→10:43)
[2020-12-18] MEDS: LORazepam 2 mg VIAL 1 ml IV PUSH PRN ×3 (00:41→09:47)
[2020-12-18] MEDS ORDERED: Vancomycin Trough Check NOTE FOLLOW UP ONE (07:30)
[2020-12-18] MEDS ORDERED: Perflutren Lipid Microsphere 3 ML VIAL ONE (07:44)
[2020-12-18] MEDS: Enoxaparin 40 MG/0.4 ML SYR SUBCUT SCH (09:52)
[2020-12-18 10:10] LABS: ABS Basophils 0.1 10^3/ul (0-0.2); ABS Eosinophils 0.1 10^3/ul (0-0.6); ABS Lymphocytes 1.3 10^3/ul (1.0-4.8); ABS Monocytes 0.3 10^3/ul (0-0.8); ABS Neutrophils 3.6 10^3/ul (1.5-7.7); Eosinophil % 2.6 %; Hematocrit 36 % (42-52); Hemoglobin 11.9 g/dL (14.0-18.0); Mean Corpuscular HGB Conc 33 g/dL (31-36); Mean Corpuscular Hemoglobin 30 pg (27-31); Mean Corpuscular Volume 88 fL (80-94); Mean Platelet Volume 9.1 fL (7.4-10.4); Platelet Count 365 10^3/uL (150-450); Red Blood Count 4.05 10^6 /uL (4.18-5.48); Red Cell Distribution Width 14 % (10-15); White Blood Count 5.5 10^3/uL (3.5-10.8)
[2020-12-18 10:26] LABS: Anion Gap 3 mmol/L (2-11); Blood Urea Nitrogen 9 mg/dL (6-24); CO2 Carbon Dioxide 29 mmol/L (22-32); Calcium 8.7 mg/dL (8.6-10.3); Chloride 105 mmol/L (101-111); EGFR African American 144.2 (>60); EGFR Non-African American 119.2 (>60); Glucose 105 mg/dL (70-100); Potassium 4.4 mmol/L (3.5-5.0); Sodium 137 mmol/L (135-145)
[2020-12-18] MEDS: Nicotine PATCH 21 MG/24 HR PATCH TRANSDERM SCH (10:42)
[2020-12-18 10:48] LABS: % Iron Saturation 29 % (15-55); Iron 75 ug/dL (50-212); Total Iron Binding Capacity 263 mcg/dL (250-450); Transferrin 188 mg/dL (203-362); Unsaturated Iron Binding < 248 ug/dL
[2020-12-18 11:08] LABS: Ferritin 88.2 ng/mL (24-336)
[2020-12-18 11:30] VITALS: BP 138/73
[2020-12-18] MEDS ORDERED: LORazepam 2 mg VIAL 1 ml IM ONE (11:52)
== END 2020-12-18 12:56 | disposition left against medical advice (07) | DRG 383 ==
LOC: ED 19:34 → MEDTELE 12-17 00:14 → SUATTDRO 12-17 00:14
PROVIDERS: ADMIT Student in an Organized Health Care Education/Training Program; ATTEND Internal Medicine